=== PATIENT | male | born 1960 | race Caucasian/White ===

== ENCOUNTER 2017-03-02 13:18 | Inpatient (IN) | payer OTHER ==
[~2017-03-02] VITALS: Ht 185.4 cm; Wt 160.2 kg
[~2017-03-02 13:18] MED LIST: ASPI1TAB7 PO; PRIN20TA2 PO; ZOCO40TA PO
[2017-03-02 13:41] VITALS: BP 156/97; PULSE 87; RESP 16; TEMP 98.9; O2SAT 97
[2017-03-02] MEDS ORDERED: SIMV40TA PO (14:15)
[2017-03-02] MEDS ORDERED: HYDR12.56 PO (14:15)
[2017-03-02] MEDS ORDERED: LISI40TA PO (14:15)
[2017-03-02] MEDS ORDERED: ASPI1TAB69 PO (14:15)
[2017-03-02] MEDS ORDERED: BACT400T PO (14:16)
[2017-03-02] MEDS ORDERED: MORPHINE SULFATE 4 MG/ML INJ IV PUSH ONE ×2 (14:30→16:15)
[2017-03-02] MEDS ORDERED: VANCOMYCIN INJ 1,000 MG in SODIUM CHLOR 0.9% 250 ML INJ 250 ML IV ONE ×2 (14:30→18:00)
[2017-03-02 15:03] LABS: CHLORIDE 103 MEQ/L (98-107); POTASSIUM 4.3 MEQ/L (3.5-5.1); SODIUM (NA) 137 MEQ/L (136-145)
[2017-03-02 15:04] LABS: BASOPHIL # 0.1 TH/MM3 (0-0.2); BASOPHIL % 0.9 % (0.0-2.0); EOSINOPHIL # 0.1 TH/MM3 (0-0.4); EOSINOPHIL % 1.2 % (0.0-4.0); HEMATOCRIT 44.5 % (39.0-51.0); HEMO FLAGS DIFF FINAL; LYMPH % 15.7 % (9.0-44.0); LYMPHOCYTE # 1.5 TH/MM3 (1.0-4.8); MEAN CELL VOLUME 87.7 FL (80.0-100.0); MEAN CORPUSCULAR HEMOGLOBIN 28.5 PG (27.0-34.0); MEAN CORPUSCULAR HGB CONC 32.5 % (32.0-36.0); MONO % 7.8 % (0.0-8.0); NEUT % 74.4 % (16.0-70.0); PLATELET COUNT 222 TH/MM3 (150-450); RED BLOOD COUNT 5.08 MIL/MM3 (4.50-5.90); RED CELL DISTRIBUTION WIDTH 13.1 % (11.6-17.2); WHITE BLOOD COUNT 9.4 TH/MM3 (4.0-11.0)
[2017-03-02 15:07] LABS: ANION GAP 8 MEQ/L (5-15); BICARBONATE 25.6 MEQ/L (21.0-32.0); BLOOD UREA NITROGEN 20 MG/DL (7-18)
[2017-03-02 15:10] LABS: ALT (GPT) 27 U/L (12-78); AST (GOT) 32 U/L (15-37); GLOMERULAR FILTRATION RATE 77 ML/MIN (>89)
[2017-03-02 15:11] LABS: TOTAL BILIRUBIN ADULT 0.8 MG/DL (0.2-1.0)
[2017-03-02 15:13] LABS: ALKALINE PHOSPHATASE 108 U/L (45-117)
--- NOTE | 2017-03-02 15:14 | PD ---
HPI Chief Complaint: Skin Problem Time Seen by Provider: 14:12 Travel History International Travel<30 days: No Contact w/Intl Traveler<30days: No Traveled to known affect area: No History of Present Illness HPI Patient is a 56-year-old male who comes in complaining of pain and swelling to his right lower extremity. He says that 2 days ago he thinks he had a flea bite the back of his calf. He noticed yesterday that it was red and a little swollen. He went to urgent care who prescribed him Bactrim. He went back for a wound check today, and it appeared to be getting worse, so they sent him to the emergency department. He says his leg has become more red and the area swelling has increased. He reports a fever of 102 yesterday. He denies any chest pain or shortness of breath. He denies history of diabetes. PFSH Past Medical History Arthritis: Yes (KNEES) Cardiovascular Problems: Yes Diabetes: No Glaucoma: Yes Hypertension: Yes Influenza Vaccination: Yes Past Surgical History Other Surgery: Yes (LASIK EYE SURGERY) Social History Alcohol Use: Yes (RARELY) Tobacco Use: No Substance Use: No Allergies-Medications (Allergen,Severity, Reaction): Coded Allergies: Penicillin (Verified Allergy, Mild, 03/02/17) Reported Meds & Prescriptions Reported Meds & Active Scripts Active Reported Bactrim (Sulfamethoxazole-Trimethoprim) 400-80 Mg Tab 1 Tab PO BID Hydrochlorothiazide 12.5 Mg Tab 12.5 Mg PO DAILY Simvastatin 40 Mg Tab 40 Mg PO HS Lisinopril 40 Mg Tab 40 Mg PO DAILY Aspirin 81 Mg Tabdr 81 Mg PO DAILY Review of Systems Except as stated in HPI: all other systems reviewed are Neg General / Constitutional: Positive: Fever HENT: No: Headaches, Lightheadedness Cardiovascular: No: Chest Pain or Discomfort Respiratory: No: Shortness of Breath Gastrointestinal: No: Nausea, Vomiting Musculoskeletal: Positive: Edema, Pain Skin: Positive Change in Pigmentation Neurologic: No: Weakness, Dizziness Physical Exam Narrative GENERAL: Awake and alert, in no acute distress. SKIN: Focused skin assessment warm/dry. Right calf is erythematous from just below the knee to just above the ankle, warm to the touch. HEAD: Atraumatic. Normocephalic. EYES: Pupils equal and round. No scleral icterus. ENT: Mucous membranes pink and moist. NECK: Trachea midline. No JVD. CARDIOVASCULAR: Regular rate and rhythm. No murmur appreciated. RESPIRATORY: No accessory muscle use. Clear to auscultation. Breath sounds equal bilaterally. GASTROINTESTINAL: Abdomen soft, non-tender, nondistended. Hepatic and splenic margins not palpable. MUSCULOSKELETAL: No obvious deformities. No clubbing. No cyanosis. 2+ edema of the right lower extremity. NEUROLOGICAL: Awake and alert. No obvious cranial nerve deficits. Motor grossly within normal limits. Normal speech. PSYCHIATRIC: Appropriate mood and affect; insight and judgment normal. Data Data Last Documented VS Vital Signs Date Time Temp Pulse Resp B/P Pulse Ox O2 Delivery O2 Flow Rate FiO2 03/02/17 13:41 98.9 87 16 156/97 97 Orders Complete Blood Count With Diff (03/02/17 14:17) Comprehensive Metabolic Panel (03/02/17 14:17) Ct Tib/Fib W Iv Contrast (03/02/17 ) Vancomycin Inj (Vancomycin Inj) (03/02/17 14:30) Morphine Inj (Morphine Inj) (03/02/17 14:30) Blood Culture (03/02/17 14:17) Iohexol 350 Inj (Omnipaque 350 Inj) (03/02/17 15:42) Lidocaine 1% Inj (50 Ml) (Xylocaine 1% I (03/02/17 15:45) Admit Order (Ed Use Only) (03/02/17 ) Morphine Inj (Morphine Inj) (03/02/17 16:15) Labs Laboratory Tests Test 03/02/17 14:35 White Blood Count 9.4 TH/MM3 Red Blood Count 5.08 MIL/MM3 Hemoglobin 14.5 GM/DL Hematocrit 44.5 % Mean Corpuscular Volume 87.7 FL Mean Corpuscular Hemoglobin 28.5 PG Mean Corpuscular Hemoglobin 32.5 % Concent Red Cell Distribution Width 13.1 % Platelet Count 222 TH/MM3 Mean Platelet Volume 8.0 FL Neutrophils (%) (Auto) 74.4 % Lymphocytes (%) (Auto) 15.7 % Monocytes (%) (Auto) 7.8 % Eosinophils (%) (Auto) 1.2 % Basophils (%) (Auto) 0.9 % Neutrophils # (Auto) 7.0 TH/MM3 Lymphocytes # (Auto) 1.5 TH/MM3 Monocytes # (Auto) 0.7 TH/MM3 Eosinophils # (Auto) 0.1 TH/MM3 Basophils # (Auto) 0.1 TH/MM3 CBC Comment DIFF FINAL Differential Comment Sodium Level 137 MEQ/L Potassium Level 4.3 MEQ/L Chloride Level 103 MEQ/L Carbon Dioxide Level 25.6 MEQ/L Anion Gap 8 MEQ/L Blood Urea Nitrogen 20 MG/DL Creatinine 1.00 MG/DL Estimat Glomerular Filtration 77 ML/MIN Rate Random Glucose 109 MG/DL Calcium Level 8.4 MG/DL Total Bilirubin 0.8 MG/DL Aspartate Amino Transf 32 U/L (AST/SGOT) Alanine Aminotransferase 27 U/L (ALT/SGPT) Alkaline Phosphatase 108 U/L Total Protein 7.1 GM/DL Albumin 2.9 GM/DL MDM Medical Decision Making Medical Screen Exam Complete: Yes Emergency Medical Condition: Yes Differential Diagnosis Necrotizing fasciitis versus Cellulitis versus abscess Narrative Course Patient is a 56-year-old male comes in complaining of pain, swelling, redness of his right leg. Exam shows large area of erythema and warmth. IV established , labs sent. Labs show no acute abnormalities. Given Vancomycin and pain medicine. CT performed shows extensive cellulitis, no definitive abscess. Patient will be admitted for further management. Diagnosis Primary Impression: Cellulitis Qualified Code: L03.115 - Cellulitis of right lower extremity Admitting Information Admitting Physician Requests: Observation Condition: Stable Delores Norman MD Mar 02, 2017 15:14
[2017-03-02] MEDS ORDERED: IOHEXOL 350 MG/ML 10 ML VIAL (for RAD DIAG) IV ONE (15:42)
[2017-03-02] MEDS ORDERED: LIDOCAINE HCL 1% 50 ML VIAL INFIL ONE (15:45)
--- NOTE | 2017-03-02 15:53 | RADHPO ---
EXAM DATE/TIME: 03/02/2017 15:20 [facility] COMPARISON: No previous studies available for comparison. INDICATIONS : Wound on right upper lateral low leg. Evaluate for abscess. IV CONTRAST: 90 cc Omnipaque 350 (iohexol) IV RADIATION DOSE: 11.43 CTDIvol (mGy) MEDICAL HISTORY : Hypertension. SURGICAL HISTORY : None. ENCOUNTER: Initial ACUITY: 2 days PAIN SCALE: 5/10 LOCATION: Right low leg TECHNIQUE: Volumetric scanning of the tibia and fibula was performed. Using automated exposure c ontrol and adjustment of the mA and/or kV according to patient size, radiation dose was kept as low a s reasonably achievable to obtain optimal diagnostic quality images. FINDINGS: There is generalized soft tissue swelling evident. There is marked cellulitis and edema throughout t he entire lower extremity below the knee to the ankle without obvious defined fluid collection or abs cess. There is no evidence of bony destruction. There is suggestion of osteomyelitis. CONCLUSION: 1. Marked superficial cellulitis without defined deep space abscess or osteomyelitis. 2. Cellulitis does involve the anterior surface of the tibia but there is no periosteal reaction to suggest an osteomyelitis at this point. 3. Extensive venous varicosity evident. Noe Burks MD FACR on March 02, 2017 at 15:46 Board Certified Radiologist. This report was verified electronically.
[2017-03-02 16:48] VITALS: BP 138/78; PULSE 88; RESP 18; TEMP 98.6; O2SAT 97
[2017-03-02] MEDS ORDERED: SODIUM CHLORIDE 0.9% FLUSH 10 ML FLUSH IV FLUSH PRN (17:15)
[2017-03-02] MEDS ORDERED: NALOXONE HCL 0.4 MG/ML AMP IV PRN (17:15)
[2017-03-02] MEDS ORDERED: ACETAMINOPHEN 325 MG TAB PO PRN (17:15)
[2017-03-02] MEDS ORDERED: SENNOSIDES 8.6 MG TAB PO PRN (17:15)
--- NOTE | 2017-03-02 17:53 | HHI.HP ---
HPI Service [facility] Primary Care Physician Sharmin tSroud, Admission Diagnosis Cellulitis Diagnoses: Chief Complaint: Leg pain, cellulitis Travel History International Travel<30 Days: No Contact w/Intl Traveler <30 Da: No Traveled to Known Affected Are: No History of Present Illness The patient is a 56-year-old male with a past medical history of CVA and sleep apnea who is presenting to the hospital with cellulitis. 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 He said he received the cream and a course of pills and the scabies resolved. He said he had the scabies sores in his inner arms, around the elbows. 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 He was very itchy from the fleas and started scratching his legs and he scratched his leg until it started bleeding. He says there was an area on his right leg that was like a small red dot. He applied zinc oxide to the area. It got bigger, more painful and his leg felt tight so he went to urgent care. He was given a course of Bactrim. He says today his leg got worse despite the Bactrim so he went back to urgent care and they referred him to the hospital for IV antibiotics. The patient also mentions that he has bumps under his left armpit that he was told might be secondary to MRSA. He says his pain is quite severe at this time. He reports a fever of 102.4 at home. Review of Systems Except as stated in HPI: all other systems reviewed are Neg Past Family Social History Past Medical History CVA 8 years ago Hypertension Obstructive sleep apnea on CPAP Allergies: Coded Allergies: Penicillin (Verified Allergy, Mild, 03/02/17) Active Ordered Medications Current Medications Medications (Trade) Dose Ordered Sig/Chandan Route Start Time Stop Time Status Last Admin Pharmacy Profile Note 0 ml @ 0 mls/hr UNSCH OTHER 03/02/17 18:00 Vancomycin HCl 2250 mg/Sodium Chloride 522.5 ml @ 250 mls/hr Q12H IV 03/03/17 03:00 (Vancomycin Inj/ NS 250 ml Inj) 250 ml @ 250 mls/hr ONCE ONCE IV 03/02/17 18:00 03/02/17 18:59 (Ecotrin Ec) 81 mg DAILY PO 03/03/17 09:00 (Microzide) 12.5 mg DAILY PO 03/03/17 09:00 (Prinivil) 40 mg DAILY PO 03/03/17 09:00 Pravastatin Sodium 80 mg 80 mg HS PO 03/02/17 21:00 (NS 1000 ml Inj) 1,000 ml @ 100 mls/hr Q10H IV 03/02/17 17:14 03/03/17 13:13 (NS Flush) 2 ml UNSCH PRN IV FLUSH 03/02/17 17:15 (NS Flush) 2 ml BID IV FLUSH 03/02/17 21:00 (Tylenol) 650 mg Q4H PRN PO 03/02/17 17:15 (Colace) 100 mg Q12H PO 03/02/17 21:00 (Senokot) 17.2 mg Q12H PRN PO 03/02/17 17:15 (Ambien) 5 mg HS PRN PO 03/02/17 17:15 (Lovenox Inj) 40 mg Q24H SQ 03/02/17 18:00 (Tylenol) 650 mg Q6H PRN PO 03/02/17 17:15 (Roxicodone) 10 mg Q4H PRN PO 03/02/17 17:15 (Dilaudid Pf Inj) 1 mg Q4H PRN IV 03/02/17 17:15 (Roxicodone) 5 mg Q4H PRN PO 03/02/17 17:15 (Narcan Inj) 0.4 mg UNSCH PRN IV 03/02/17 17:15 Miscellaneous Information SPECIFIC LAB TO BE DRAWN:VANCOMY... ONCE ONCE .XX 03/04/17 14:45 03/04/17 14:46 Family History CAD Social History The patient does not drink, smoke or use illicit substances. Physical Exam Vital Signs Vital Signs Date Time Temp Pulse Resp B/P Pulse Ox O2 Delivery O2 Flow Rate FiO2 03/02/17 16:48 98.6 88 18 138/78 97 03/02/17 13:41 98.9 87 16 156/97 97 Physical Exam GENERAL: Awake and alert, in no acute distress. SKIN: Right calf is erythematous from just below the knee to just above the ankle, warm to the touch and tender to palpation. There is an area of focal infection. There is no active drainage. The patient also appears to have an area of folliculitis under his left armpit. HEAD: Atraumatic. Normocephalic. EYES: Pupils equal and round. No scleral icterus. ENT: Mucous membranes pink and moist. NECK: Trachea midline. No JVD. CARDIOVASCULAR: Regular rate and rhythm. No murmur appreciated. RESPIRATORY: No accessory muscle use. Clear to auscultation. Breath sounds equal bilaterally. GASTROINTESTINAL: Abdomen soft, non-tender, nondistended. Hepatic and splenic margins not palpable. MUSCULOSKELETAL: No obvious deformities. No clubbing. No cyanosis. 2+ edema of the right lower extremity. NEUROLOGICAL: Awake and alert. No obvious cranial nerve deficits. Motor grossly within normal limits. Normal speech. PSYCHIATRIC: Appropriate mood and affect; insight and judgment normal. Laboratory Laboratory Tests Test 03/02/17 14:35 White Blood Count 9.4 Red Blood Count 5.08 Hemoglobin 14.5 Hematocrit 44.5 Mean Corpuscular Volume 87.7 Mean Corpuscular Hemoglobin 28.5 Mean Corpuscular Hemoglobin 32.5 Concent Red Cell Distribution Width 13.1 Platelet Count 222 Mean Platelet Volume 8.0 Neutrophils (%) (Auto) 74.4 Lymphocytes (%) (Auto) 15.7 Monocytes (%) (Auto) 7.8 Eosinophils (%) (Auto) 1.2 Basophils (%) (Auto) 0.9 Neutrophils # (Auto) 7.0 Lymphocytes # (Auto) 1.5 Monocytes # (Auto) 0.7 Eosinophils # (Auto) 0.1 Basophils # (Auto) 0.1 CBC Comment DIFF FINAL Differential Comment Sodium Level 137 Potassium Level 4.3 Chloride Level 103 Carbon Dioxide Level 25.6 Anion Gap 8 Blood Urea Nitrogen 20 Creatinine 1.00 Estimat Glomerular Filtration 77 Rate Random Glucose 109 Calcium Level 8.4 Total Bilirubin 0.8 Aspartate Amino Transf 32 (AST/SGOT) Alanine Aminotransferase 27 (ALT/SGPT) Alkaline Phosphatase 108 Total Protein 7.1 Albumin 2.9 Date/Time Procedure Status Source Growth 03/02/17 14:43 Aerobic Blood Culture Received Blood Peripheral Pending 03/02/17 14:43 Anaerobic Blood Culture Received Blood Peripheral Pending Result Diagram: 03/02/17 1435 03/02/17 1435 Imaging Last Impressions Lower Extremity CT 03/02/17 0000 Signed Impressions: Service Date/Time: Thursday, March 02, 2017 15:20 - CONCLUSION: 1. Marked superficial cellulitis without defined deep space abscess or osteomyelitis. 2. Cellulitis does involve the anterior surface of the tibia but there is no periosteal reaction to suggest an osteomyelitis at this point. 3. Extensive venous varicosity evident. Noe Burks MD FACR Assessment and Plan Assessment and Plan Right lower extremity cellulitis The patient sustained cellulitis after scratching his legs secondary to flea bites. He failed an outpatient course of Bactrim. He was started on IV vancomycin in the emergency department. CT of the leg showed: Marked superficial cellulitis without defined deep space abscess or osteomyelitis; Cellulitis does involve the anterior surface of the tibia but there is no periosteal reaction to suggest an osteomyelitis at this point. - Continue IV vancomycin. - Pain control with a bowel regimen. - Follow blood cultures. Obtain wound culture if drainage present. - IV fluids. - Physical therapy. Folliculitis Noted in his left armpit. - Continue vancomycin and monitor. Hypertension Exacerbated by pain. - Continue home medications. - Vasotec as needed. Morbid obesity The patient has a BMI of 46.2. - Weight loss strongly recommended. PPx: Lovenox. Code Status Full. Discussed Condition With Dr. Norman, pt. Cabrera Nye DO Mar 02, 2017 17:53
[2017-03-02 17:54] VITALS: BP 135/74; PULSE 85; RESP 19; TEMP 98.1; O2SAT 96
[2017-03-02] MEDS: ENOXAPARIN SODIUM 40 MG/0.4 ML SYRINGE SQ SCH (17:57)
[2017-03-02] MEDS: SODIUM CHLOR 0.9% 1000 ML INJ 1,000 ML IV SCH ×2 (17:58→18:58)
[2017-03-02] MEDS ORDERED: ENALAPRILAT 1.25 MG/ML VIAL IV PUSH PRN (18:00)
[2017-03-02] MEDS ORDERED: Vancomycin Consult Pharmacy 1 EA OTHER SCH (18:00)
[2017-03-02] MEDS: HYDROmorphone HCL PF 1 MG/ML VIAL IV PRN (19:30)
[2017-03-02 20:37] VITALS: BP 147/91; PULSE 104; RESP 16; TEMP 100.1; O2SAT 95
[2017-03-02] MEDS: DOCUSATE SODIUM 100 MG CAP PO SCH (21:00)
[2017-03-02] MEDS: PRAVASTATIN SOD 40 MG TAB PO SCH (21:00)
[2017-03-02] MEDS: SODIUM CHLORIDE 0.9% FLUSH 10 ML FLUSH IV FLUSH SCH (21:01)
[2017-03-02 21:40] VITALS: O2SAT 98
[2017-03-03 00:29] VITALS: BP 136/72; PULSE 98; RESP 16; TEMP 100.1; O2SAT 96
[2017-03-03] MEDS ORDERED: VANCOMYCIN INJ 2,250 MG in SODIUM CHLORID 0.9% 500 ML INJ 500 ML IV SCH (03:00)
[2017-03-03] MEDS: ACETAMINOPHEN 325 MG TAB PO PRN ×2 (06:28→07:30)
[2017-03-03 07:25] LABS: AUTOMATED NEUTROPHIL # 6.6 TH/MM3 (1.8-7.7); BASOPHIL % 0.3 % (0.0-2.0); EOSINOPHIL # 0.1 TH/MM3 (0-0.4); EOSINOPHIL % 1.1 % (0.0-4.0); HEMATOCRIT 37.5 % (39.0-51.0); LYMPH % 19.6 % (9.0-44.0); LYMPHOCYTE # 1.8 TH/MM3 (1.0-4.8); MEAN CELL VOLUME 86.4 FL (80.0-100.0); MEAN CORPUSCULAR HGB CONC 34.7 % (32.0-36.0); PLATELET COUNT 193 TH/MM3 (150-450); RED BLOOD COUNT 4.34 MIL/MM3 (4.50-5.90); RED CELL DISTRIBUTION WIDTH 12.8 % (11.6-17.2); WHITE BLOOD COUNT 9.3 TH/MM3 (4.0-11.0)
[2017-03-03 07:26] LABS: HEMO FLAGS DIFF FINAL
[2017-03-03 07:48] LABS: ALKALINE PHOSPHATASE 104 U/L (45-117); ALT (GPT) 20 U/L (12-78); ANION GAP 10 MEQ/L (5-15); AST (GOT) 13 U/L (15-37); BICARBONATE 27.8 MEQ/L (21.0-32.0); BLOOD UREA NITROGEN 16 MG/DL (7-18); CHLORIDE 101 MEQ/L (98-107); GLOMERULAR FILTRATION RATE 90 ML/MIN (>89); POTASSIUM 3.4 MEQ/L (3.5-5.1); SODIUM (NA) 139 MEQ/L (136-145)
[2017-03-03 08:00] VITALS: BP 132/86; PULSE 81; RESP 17; TEMP 97.9; O2SAT 94
[2017-03-03] MEDS: ASPIRIN EC 81 MG TABEC PO SCH (08:56)
[2017-03-03] MEDS: DOCUSATE SODIUM 100 MG CAP PO SCH ×2 (08:56→21:05)
[2017-03-03] MEDS: HYDROCHLOROTHIAZIDE 12.5 MG CAP PO SCH (08:56)
[2017-03-03] MEDS: LISINOPRIL 20 MG TAB PO SCH (08:56)
[2017-03-03] MEDS: SODIUM CHLORIDE 0.9% FLUSH 10 ML FLUSH IV FLUSH SCH ×2 (09:00→20:15)
--- NOTE | 2017-03-03 09:54 | HHI.PR ---
Subjective Remarks The patient says that the pain in his right leg is getting worse. He also says his left armpit pain is getting worse. He says he got a rash in the left side of his flank and back. He wants something for itching. Discussed with nursing. Objective Vitals Vital Signs Date Time Temp Pulse Resp B/P Pulse Ox O2 Delivery O2 Flow Rate FiO2 03/03/17 08:00 97.9 81 17 132/86 94 03/03/17 00:29 100.1 98 16 136/72 96 03/02/17 21:40 98 21 03/02/17 20:37 100.1 104 16 147/91 95 03/02/17 17:54 98.1 85 19 135/74 96 03/02/17 16:48 98.6 88 18 138/78 97 03/02/17 13:41 98.9 87 16 156/97 97 I/O 03/02/17 03/02/17 03/02/17 03/03/17 03/03/17 03/03/17 07:00 15:00 23:00 07:00 15:00 23:00 Intake Total 970 ml Output Total 250 ml Balance 970 ml -250 ml Intake Oral 720 ml IV Total 250 ml Output Urine Total 250 ml # Voids 0 Result Diagram: 03/03/17 0630 03/03/17 0630 Imaging Last Impressions Lower Extremity CT 03/02/17 0000 Signed Impressions: Service Date/Time: Thursday, March 02, 2017 15:20 - CONCLUSION: 1. Marked superficial cellulitis without defined deep space abscess or osteomyelitis. 2. Cellulitis does involve the anterior surface of the tibia but there is no periosteal reaction to suggest an osteomyelitis at this point. 3. Extensive venous varicosity evident. Noe Burks MD FACR Objective Remarks GENERAL: Awake and alert, in no acute distress. SKIN: Right calf is erythematous from just below the knee to just above the ankle, warm to the touch and tender to palpation. There is an area of focal infection. There is no active drainage. The patient also appears to have an area of folliculitis under his left armpit. Rash on back and left flank area. HEAD: Atraumatic. Normocephalic. EYES: Pupils equal and round. No scleral icterus. ENT: Mucous membranes pink and moist. NECK: Trachea midline. No JVD. CARDIOVASCULAR: Regular rate and rhythm. No murmur appreciated. RESPIRATORY: No accessory muscle use. Clear to auscultation. Breath sounds equal bilaterally. GASTROINTESTINAL: Abdomen soft, non-tender, nondistended. Hepatic and splenic margins not palpable. MUSCULOSKELETAL: No obvious deformities. No clubbing. No cyanosis. 2+ edema of the right lower extremity. NEUROLOGICAL: Awake and alert. No obvious cranial nerve deficits. Motor grossly within normal limits. Normal speech. PSYCHIATRIC: Appropriate mood and affect; insight and judgment normal. Medications and IVs Current Medications Medications (Trade) Dose Ordered Sig/Chandan Route Start Time Stop Time Status Last Admin Pharmacy Profile Note 0 ml @ 0 mls/hr UNSCH OTHER 03/02/17 18:00 (Vancomycin Inj/ NS 500 ml Inj) 522.5 ml @ 250 mls/hr Q12H IV 03/03/17 03:00 03/03/17 03:13 (Ecotrin Ec) 81 mg DAILY PO 03/03/17 09:00 03/03/17 08:56 (Microzide) 12.5 mg DAILY PO 03/03/17 09:00 03/03/17 08:56 (Prinivil) 40 mg DAILY PO 03/03/17 09:00 03/03/17 08:56 Pravastatin Sodium 80 mg 80 mg HS PO 03/02/17 21:00 03/02/17 21:00 (NS 1000 ml Inj) 1,000 ml @ 100 mls/hr Q10H IV 03/02/17 17:14 03/03/17 13:13 03/02/17 18:58 (NS Flush) 2 ml UNSCH PRN IV FLUSH 03/02/17 17:15 (NS Flush) 2 ml BID IV FLUSH 03/02/17 21:00 03/02/17 21:01 (Tylenol) 650 mg Q4H PRN PO 03/02/17 17:15 03/03/17 06:28 (Colace) 100 mg Q12H PO 03/02/17 21:00 03/03/17 08:56 (Senokot) 17.2 mg Q12H PRN PO 03/02/17 17:15 (Ambien) 5 mg HS PRN PO 03/02/17 17:15 (Lovenox Inj) 40 mg Q24H SQ 03/02/17 18:00 03/02/17 17:57 (Tylenol) 650 mg Q6H PRN PO 03/02/17 17:15 (Roxicodone) 10 mg Q4H PRN PO 03/02/17 17:15 03/03/17 08:10 (Dilaudid Pf Inj) 1 mg Q4H PRN IV 03/02/17 17:15 03/02/17 19:30 (Roxicodone) 5 mg Q4H PRN PO 03/02/17 17:15 03/02/17 17:57 (Narcan Inj) 0.4 mg UNSCH PRN IV 03/02/17 17:15 Miscellaneous Information SPECIFIC LAB TO BE DRAWN:VANCOMY... ONCE ONCE .XX 03/04/17 14:45 03/04/17 14:46 (Vasotec Inj) 1.25 mg Q6H PRN IV PUSH 03/02/17 18:00 A/P Assessment and Plan Right lower extremity cellulitis The patient sustained cellulitis after scratching his legs secondary to flea bites. He failed an outpatient course of Bactrim. He was started on IV vancomycin in the emergency department. CT of the leg showed: Marked superficial cellulitis without defined deep space abscess or osteomyelitis; Cellulitis does involve the anterior surface of the tibia but there is no periosteal reaction to suggest an osteomyelitis at this point. - d/c IV vancomycin as there is concern for a drug rash. Start IV clindamycin. - Pain control with a bowel regimen. - Follow blood cultures. Obtain wound culture. - IV fluids. - Physical therapy. - Benadryl for itching. Folliculitis Noted in his left armpit. - Continue clindamycin and monitor. Hypertension Exacerbated by pain. - Continue home medications. - Vasotec as needed. Morbid obesity The patient has a BMI of 46.2. - Weight loss strongly recommended. PPx: Lovenox. Discharge Planning Awaiting clinical improvement. Cabrera Nye DO Mar 03, 2017 09:54
[2017-03-03] MEDS: HYDROmorphone HCL PF 1 MG/ML VIAL IV PRN ×5 (10:10→22:43)
[2017-03-03] MEDS ORDERED: diphenhydrAMINE HCL 50 MG/ML VIAL IV PUSH ONE (10:30)
[2017-03-03] MEDS ORDERED: POTASSIUM CHLORIDE 25 MEQ EFFERVESCENT TAB PO ONE (10:30)
[2017-03-03] MEDS: CLINDAMYCIN INJ 600 MG in SODIUM CHLORIDE 0.9% INJ 100 ML IV SCH ×2 (11:42→20:15)
[2017-03-03] MEDS: LACTOBACILLUS ACIDOPHILUS TAB PO SCH ×2 (11:53→18:21)
[2017-03-03 12:00] VITALS: BP 130/79; PULSE 80; RESP 18; TEMP 97.7; O2SAT 93
[2017-03-03] MEDS: diphenhydrAMINE HCL 50 MG/ML VIAL IV PUSH PRN ×2 (15:49→20:12)
[2017-03-03 16:00] VITALS: BP 108/75; PULSE 84; RESP 17; TEMP 97.2; O2SAT 95
[2017-03-03] MEDS: ENOXAPARIN SODIUM 40 MG/0.4 ML SYRINGE SQ SCH (18:21)
[2017-03-03 20:41] VITALS: BP 121/75; PULSE 91; RESP 16; TEMP 100.2; O2SAT 94
[2017-03-03] MEDS: PRAVASTATIN SOD 40 MG TAB PO SCH (21:05)
[2017-03-03 21:14] VITALS: O2SAT 97
[2017-03-03] MEDS: ZOLPIDEM TARTRATE 5 MG TAB PO PRN (22:42)
[2017-03-04] VITALS (7 sets, daily range): BP systolic 121–131; BP diastolic 75–87; PULSE 85–97; RESP 18–20; TEMP 97.6–99.2; O2SAT 92–97
[2017-03-04] MEDS: diphenhydrAMINE HCL 50 MG/ML VIAL IV PUSH PRN ×5 (01:54→22:05)
[2017-03-04] MEDS: CLINDAMYCIN INJ 600 MG in SODIUM CHLORIDE 0.9% INJ 100 ML IV SCH (02:29)
[2017-03-04 07:33] LABS: HEMATOCRIT 38.6 % (39.0-51.0); MEAN CELL VOLUME 87.5 FL (80.0-100.0); MEAN CORPUSCULAR HEMOGLOBIN 29.5 PG (27.0-34.0); MEAN CORPUSCULAR HGB CONC 33.8 % (32.0-36.0); PLATELET COUNT 185 TH/MM3 (150-450); RED BLOOD COUNT 4.41 MIL/MM3 (4.50-5.90); RED CELL DISTRIBUTION WIDTH 12.9 % (11.6-17.2); REVIEW FLAG FINAL; WHITE BLOOD COUNT 5.5 TH/MM3 (4.0-11.0)
[2017-03-04 07:38] LABS: POTASSIUM 3.8 MEQ/L (3.5-5.1)
[2017-03-04 07:43] LABS: BICARBONATE 25.3 MEQ/L (21.0-32.0); MAGNESIUM 1.8 MG/DL (1.5-2.5)
[2017-03-04] MEDS: SODIUM CHLORIDE 0.9% FLUSH 10 ML FLUSH IV FLUSH SCH ×2 (09:00→21:57)
[2017-03-04] MEDS: ASPIRIN EC 81 MG TABEC PO SCH (09:20)
[2017-03-04] MEDS: LACTOBACILLUS ACIDOPHILUS TAB PO SCH ×3 (09:20→17:27)
[2017-03-04] MEDS: HYDROCHLOROTHIAZIDE 12.5 MG CAP PO SCH (09:20)
[2017-03-04] MEDS: DOCUSATE SODIUM 100 MG CAP PO SCH ×2 (09:20→21:57)
[2017-03-04] MEDS: LISINOPRIL 20 MG TAB PO SCH (09:21)
[2017-03-04] MEDS: HYDROmorphone HCL PF 1 MG/ML VIAL IV PRN (09:22)
[2017-03-04] MEDS ORDERED: ACETAMINOPHEN/HYDROcodone 325 MG/5 MG TAB PO PRN (10:45)
[2017-03-04] MEDS: MORPHINE SULFATE 4 MG/ML INJ IV PUSH PRN ×2 (11:55→13:22)
[2017-03-04] MEDS ORDERED: Vancomycin Consult Pharmacy 1 EA OTHER SCH (12:00)
[2017-03-04] MEDS ORDERED: methylPREDNISolone SOD SUCC 125 MG/2 ML VIAL IV PUSH ONE (12:00)
--- NOTE | 2017-03-04 12:12 | HHI.PR ---
Subjective Remarks The patient says his leg pain is worse. He says it is draining a lot. He says that the rash is spreading up his back and up his leg. He said he would like some steroids. He had nursing friends visiting him. Objective Vitals Vital Signs Date Time Temp Pulse Resp B/P Pulse Ox O2 Delivery O2 Flow Rate FiO2 03/04/17 08:55 97 21 03/04/17 08:00 98.9 87 19 121/87 93 03/04/17 00:46 97.6 90 18 121/83 95 03/03/17 21:14 97 21 03/03/17 21:05 18 03/03/17 20:41 100.2 91 16 121/75 94 03/03/17 20:05 18 03/03/17 20:05 20 03/03/17 16:00 97.2 84 17 108/75 95 I/O 03/03/17 03/03/17 03/03/17 03/04/17 03/04/17 03/04/17 07:00 15:00 23:00 07:00 15:00 23:00 Intake Total 150 ml 100 ml Output Total 250 ml Balance -250 ml 150 ml 100 ml IV Total 150 ml 100 ml Output Urine Total 250 ml # Voids 2 Result Diagram: 03/04/17 0641 03/04/17 0641 Imaging Last Impressions Lower Extremity CT 03/02/17 0000 Signed Impressions: Service Date/Time: Thursday, March 02, 2017 15:20 - CONCLUSION: 1. Marked superficial cellulitis without defined deep space abscess or osteomyelitis. 2. Cellulitis does involve the anterior surface of the tibia but there is no periosteal reaction to suggest an osteomyelitis at this point. 3. Extensive venous varicosity evident. Noe Burks MD FACR Objective Remarks GENERAL: Awake and alert, in no acute distress. SKIN: Right calf is erythematous from just below the knee to just above the ankle, warm to the touch and tender to palpation. There is an area of focal infection. There is no active drainage. The patient also appears to have an area of folliculitis under his left armpit. Rash on back and left flank area as well as right thigh. HEAD: Atraumatic. Normocephalic. EYES: Pupils equal and round. No scleral icterus. ENT: Mucous membranes pink and moist. NECK: Trachea midline. No JVD. CARDIOVASCULAR: Regular rate and rhythm. No murmur appreciated. RESPIRATORY: No accessory muscle use. Clear to auscultation. Breath sounds equal bilaterally. GASTROINTESTINAL: Abdomen soft, non-tender, nondistended. Hepatic and splenic margins not palpable. MUSCULOSKELETAL: No obvious deformities. No clubbing. No cyanosis. 2+ edema of the right lower extremity. NEUROLOGICAL: Awake and alert. No obvious cranial nerve deficits. Motor grossly within normal limits. Normal speech. PSYCHIATRIC: Appropriate mood and affect; insight and judgment normal. Medications and IVs Current Medications Medications (Trade) Dose Ordered Sig/Chandan Route Start Time Stop Time Status Last Admin (Ecotrin Ec) 81 mg DAILY PO 03/03/17 09:00 03/04/17 09:20 (Microzide) 12.5 mg DAILY PO 03/03/17 09:00 03/04/17 09:20 (Prinivil) 40 mg DAILY PO 03/03/17 09:00 03/04/17 09:21 (Pravachol) 80 mg HS PO 03/02/17 21:00 03/03/17 21:05 (NS Flush) 2 ml UNSCH PRN IV FLUSH 03/02/17 17:15 (NS Flush) 2 ml BID IV FLUSH 03/02/17 21:00 03/03/17 20:15 (Tylenol) 650 mg Q4H PRN PO 03/02/17 17:15 03/03/17 07:30 (Colace) 100 mg Q12H PO 03/02/17 21:00 03/04/17 09:20 (Senokot) 17.2 mg Q12H PRN PO 03/02/17 17:15 (Ambien) 5 mg HS PRN PO 03/02/17 17:15 03/03/17 22:42 (Lovenox Inj) 40 mg Q24H SQ 03/02/17 18:00 03/03/17 18:21 (Narcan Inj) 0.4 mg UNSCH PRN IV 03/02/17 17:15 (Vasotec Inj) 1.25 mg Q6H PRN IV PUSH 03/02/17 18:00 Lactobacillus Acidophilus 1 tab 1 tab TID PO 03/03/17 13:00 03/04/17 11:55 Vancomycin HCl 2500 mg/Sodium Chloride 525 ml @ 250 mls/hr Q12H IV 03/04/17 13:00 (Vancomycin Consult Pharmacy) 0 ml @ 0 mls/hr UNSCH OTHER 03/04/17 12:00 (Skillman 5-325 Mg) 1 tab Q4H PRN PO 03/04/17 10:45 ([place] 10-325 Mg) 1 tab Q4H PRN PO 03/04/17 10:45 (Morphine Inj) 4 mg Q4HR PRN IV PUSH 03/04/17 10:45 03/04/17 11:55 (Benadryl Inj) 50 mg Q4H PRN IV PUSH 03/04/17 15:00 Miscellaneous Information SPECIFIC LAB TO BE DRAWN:VANCOMY... ONCE ONCE .XX 03/06/17 00:45 03/06/17 00:46 A/P Assessment and Plan Right lower extremity cellulitis The patient sustained cellulitis after scratching his legs secondary to flea bites. He failed an outpatient course of Bactrim. He was started on IV vancomycin in the emergency department. CT of the leg showed: Marked superficial cellulitis without defined deep space abscess or osteomyelitis; Cellulitis does involve the anterior surface of the tibia but there is no periosteal reaction to suggest an osteomyelitis at this point. Area in center of infection has started to drain. Culture shows MRSA. - switch clindamycin back to vancomycin. - Pain control with a bowel regimen. - Follow blood and wound culture data. - Physical therapy. - US pending. Consult surgery if abscess described. Otherwise consult ID. Folliculitis Noted in his left armpit. - Continue vancomycin and monitor. Hypertension Exacerbated by pain. - Continue home medications. - Vasotec as needed. Morbid obesity The patient has a BMI of 46.2. - Weight loss strongly recommended. Drug reaction/ Rash The pt has a rash on his back and lower extremities. Did not improve by switching vanco to clindamycin. May be s/t pain meds. - switch pain meds to Skillman and morphine. - Solumedrol and Benadryl as needed. - monitor while on vancomycin. PPx: Lovenox. Discharge Planning Awaiting clinical improvement. Cabrera Nye DO Mar 04, 2017 12:12
--- NOTE | 2017-03-04 12:56 | RADHPO ---
EXAM DATE/TIME: 03/04/2017 11:54 [place] COMPARISON: No previous studies available for comparison. INDICATIONS : Right leg abscess. MEDICAL HISTORY : Glaucoma. HTN. Arthritis. CVA. Sleep apnea. SURGICAL HISTORY : Lasik eye surgery. ENCOUNTER: Initial ACUITY: 3 days PAIN SCORE: 8/10 LOCATION: Right leg. AREA EVALUATED: Right prox lateral calf. FINDINGS: Focused ultrasound of the right lower leg was performed. Elongated ovoid 4.0 x 3.2 x 1.2 cm complex f luid collection. Surrounding soft tissue edema. CONCLUSION: 4 x 3 x 1 cm complex fluid collection in the superficial soft tissues of the right calf suggesting ab scess in the proper clinical setting. Sy Finch MD on March 04, 2017 at 12:52 Board Certified Radiologist. This report was verified electronically.
[2017-03-04] MEDS: ACETAMINOPHEN/HYDROcodone 325 MG/10 MG TAB PO PRN ×3 (13:37→23:34)
[2017-03-04] MEDS: VANCOMYCIN INJ 2,500 MG in SODIUM CHLORID 0.9% 500 ML INJ 500 ML IV SCH (13:58)
[2017-03-04] MEDS ORDERED: VANCOMYCIN TROUGH ONE (14:45)
--- NOTE | 2017-03-04 15:38 | MB ---
cc: GOVIND RUIZ M.D. DATE OF CONSULTATION 03/04/17 REASON FOR CONSULTATION Right lower extremity abscess. HISTORY OF PRESENT ILLNESS The patient is a 56-year-old male with history of CVA and sleep apnea who presented with cellulitis on 03/02/2017. The patient had flea bites and either had scabies or other problems on January 12. He had a course of cream and pills and this resolved. He had sores on the inner arms and around the elbows. The patient had flea bites and scratched his legs until it started bleeding. The area on the right leg got larger and more painful. He was seen in Urgent Care and given a course of Bactrim. He represented with increasing problem and was referred for IV antibiotics. The patient had a fever of 102 at home. PAST MEDICAL HISTORY On past medical history includes CVA 8 years ago, hypertension, obstructive sleep apnea on C-PAP. ALLERGIES HE HAS AN ALLERGY TO PENICILLIN WHICH CAUSES RASH AND HIVES. SOCIAL HISTORY The patient does not drink, smoke or use illicit substances. REVIEW OF SYSTEMS His review of systems is otherwise negative except as indicated above. PHYSICAL EXAMINATION GENERAL: Reveals an obese male in no acute distress. VITAL SIGNS: BP 125/75, pulse 85, respirations 20, temperature 98.2, 92% saturation on room air. The patient had fevers last night. None today. He denies any fever, shaking chills. CHEST: The chest is clear to auscultation. CARDIAC: Cardiac exam reveals regular rate and rhythm. ABDOMEN: Abdomen is soft. EXTREMITIES: There are multiple small approximately 2 cm areas of redness on the arms and legs proximally. These are not raised. On the right leg on the medial posterior side of the leg on the upper portion of the calf is a large area of erythema extending from just below the knee down to approximately 10-12 cm from the ankle. In the center of this area there is some epidermolysis of the skin and purulent drainage. There does not appear to be any bella necrosis of the skin or subcutaneous tissues at this time. There is pedal edema distal to this with edema of the foot. The patient has a palpable posterior tibial pulse but I cannot palpate a dorsalis pedis pulse due to the swelling. NEUROLOGIC: Exam is nonfocal. LABORATORY DATA Laboratory values demonstrate WBCs of 5.5, hemoglobin is 13, platelet count 185,000. Chemistries are essentially within normal limits except for BUN slightly elevated at 20. IMAGING STUDIES Imaging demonstrates ultrasound with a 4 x 3.2 x 1.2 cm complex fluid collection. IMPRESSION Right posterior lower leg abscess, partially drained. PLAN Patient has had lunch, is not febrile, tachycardic or showing other signs of sepsis. The wound is partially draining. He will require formal open draining as he is extremely tender to touch and bedside drainage would not be appropriate. I have discussed risks of surgery with the patient and a family member sitting present including but not limited to bleeding, infection, need for reoperation. As well as nerve damage with foot drop as this is located slightly off center laterally. We also discussed possible limb loss without intervention. This is unlikely if the abscesses drained. I discussed remedies, consequences, alternatives, convalescence; he vocalizes understand and agrees to proceed. The patient will undergo an incision and drainage with either VAC placement or packing depending on the tissue, on the appearance of the tissues deeper. Will make the patient n.p.o. after midnight. Thank you Dr. Nye for asking us to see this individual. MD YARIEL Talavera/STAN /3:01 PM /3:24 PM
[2017-03-04] MEDS: ENOXAPARIN SODIUM 40 MG/0.4 ML SYRINGE SQ SCH (17:27)
[2017-03-04] MEDS: PRAVASTATIN SOD 40 MG TAB PO SCH (21:57)
[2017-03-04] MEDS: ZOLPIDEM TARTRATE 5 MG TAB PO PRN (22:46)
[2017-03-05] VITALS (9 sets, daily range): BP systolic 105–116; BP diastolic 55–78; PULSE 70–92; RESP 18–20; TEMP 96.4–97.8; O2SAT 92–98
[2017-03-05] MEDS: VANCOMYCIN INJ 2,500 MG in SODIUM CHLORID 0.9% 500 ML INJ 500 ML IV SCH ×2 (02:20→14:19)
[2017-03-05] MEDS ORDERED: LACTATED RINGER'S 1000 ML IV PRN (02:30)
[2017-03-05] MEDS: diphenhydrAMINE HCL 50 MG/ML VIAL IV PUSH PRN ×3 (06:32→22:42)
[2017-03-05] MEDS: MORPHINE SULFATE 4 MG/ML INJ IV PUSH PRN (06:37)
[2017-03-05] MEDS: ASPIRIN EC 81 MG TABEC PO SCH (09:00)
[2017-03-05] MEDS: DOCUSATE SODIUM 100 MG CAP PO SCH ×2 (09:06→20:43)
[2017-03-05] MEDS: HYDROCHLOROTHIAZIDE 12.5 MG CAP PO SCH (09:06)
[2017-03-05] MEDS: LACTOBACILLUS ACIDOPHILUS TAB PO SCH ×3 (09:06→17:47)
[2017-03-05] MEDS: SODIUM CHLORIDE 0.9% FLUSH 10 ML FLUSH IV FLUSH SCH ×2 (09:07→20:43)
[2017-03-05] MEDS: LISINOPRIL 20 MG TAB PO SCH (09:07)
[2017-03-05] MEDS ORDERED: PROPOFOL 200 MG/20 ML AMP IV ONE (09:59)
[2017-03-05] MEDS ORDERED: ePHEDrine/NS 25 MG/5 ML SYR IV ONE (09:59)
[2017-03-05] MEDS ORDERED: LIDOCAINE 1%/EPINEPHrine 1:100,000 SOLN 30 ML VIAL ONE (10:36)
[2017-03-05] MEDS ORDERED: LIDOCAINE HCL 1% PF 30 ML VIAL ONE (10:36)
[2017-03-05] MEDS ORDERED: MIDAZOLAM HCL 2 MG/2 ML VIAL ONE (10:47)
[2017-03-05] MEDS ORDERED: FAMOTIDINE 20 MG/2 ML VIAL ONE (10:47)
--- NOTE | 2017-03-05 10:52 | HHI.PR ---
Subjective Remarks The patient was resting comfortably in bed. He said that his pain was controlled. He said his rash was better with the Benadryl. He said he was expecting to go for surgery later this morning. No acute complaints. Objective Vitals Vital Signs Date Time Temp Pulse Resp B/P Pulse Ox O2 Delivery O2 Flow Rate FiO2 03/05/17 10:13 97.8 70 24 124/72 98 03/05/17 00:00 97.6 80 18 116/78 92 03/04/17 20:34 99.2 97 20 128/78 92 03/04/17 20:25 18 03/04/17 20:25 18 03/04/17 19:47 93 21 03/04/17 16:00 86 18 131/82 95 03/04/17 12:00 98.2 85 20 125/75 92 I/O 03/04/17 03/04/17 03/04/17 03/05/17 03/05/17 03/05/17 07:00 15:00 23:00 07:00 15:00 23:00 Intake Total 100 ml 620 ml 1380 ml Output Total 400 ml Balance 100 ml 220 ml 1380 ml Intake Oral 620 ml 580 ml IV Total 100 ml 800 ml Output Urine Total 400 ml # Voids 2 2 2 # Bowel Movements 0 0 Result Diagram: 03/04/17 0641 03/04/17 0641 Imaging Last Impressions Lower Extremity Ultrasound 03/04/17 0000 Signed Impressions: Service Date/Time: Saturday, March 04, 2017 11:54 - CONCLUSION: 4 x 3 x 1 cm complex fluid collection in the superficial soft tissues of the right calf suggesting abscess in the proper clinical setting. Sy Finch MD Lower Extremity CT 03/02/17 0000 Signed Impressions: Service Date/Time: Thursday, March 02, 2017 15:20 - CONCLUSION: 1. Marked superficial cellulitis without defined deep space abscess or osteomyelitis. 2. Cellulitis does involve the anterior surface of the tibia but there is no periosteal reaction to suggest an osteomyelitis at this point. 3. Extensive venous varicosity evident. Noe Burks MD FACR Objective Remarks GENERAL: Awake and alert, in no acute distress. SKIN: Right calf is erythematous from just below the knee to just above the ankle, warm to the touch and tender to palpation. There is an area of focal infection. There is no active drainage. The patient also appears to have an area of folliculitis under his left armpit. Rash on back and left flank area as well as right thigh have improved. HEAD: Atraumatic. Normocephalic. EYES: Pupils equal and round. No scleral icterus. ENT: Mucous membranes pink and moist. NECK: Trachea midline. No JVD. CARDIOVASCULAR: Regular rate and rhythm. No murmur appreciated. RESPIRATORY: No accessory muscle use. Clear to auscultation. Breath sounds equal bilaterally. GASTROINTESTINAL: Abdomen soft, non-tender, nondistended. Hepatic and splenic margins not palpable. MUSCULOSKELETAL: No obvious deformities. No clubbing. No cyanosis. 2+ edema of the right lower extremity. NEUROLOGICAL: Awake and alert. No obvious cranial nerve deficits. Motor grossly within normal limits. Normal speech. PSYCHIATRIC: Appropriate mood and affect; insight and judgment normal. Procedures I&D 03/05/17. Medications and IVs Current Medications Medications (Trade) Dose Ordered Sig/Chandan Route Start Time Stop Time Status Last Admin (Ecotrin Ec) 81 mg DAILY PO 03/03/17 09:00 03/04/17 09:20 (Microzide) 12.5 mg DAILY PO 03/03/17 09:00 03/05/17 09:06 (Prinivil) 40 mg DAILY PO 03/03/17 09:00 03/05/17 09:07 (Pravachol) 80 mg HS PO 03/02/17 21:00 03/04/17 21:57 (NS Flush) 2 ml UNSCH PRN IV FLUSH 03/02/17 17:15 (NS Flush) 2 ml BID IV FLUSH 03/02/17 21:00 03/05/17 09:07 (Tylenol) 650 mg Q4H PRN PO 03/02/17 17:15 03/03/17 07:30 (Colace) 100 mg Q12H PO 03/02/17 21:00 03/05/17 09:06 (Senokot) 17.2 mg Q12H PRN PO 03/02/17 17:15 (Ambien) 5 mg HS PRN PO 03/02/17 17:15 03/04/17 22:46 (Lovenox Inj) 40 mg Q24H SQ 03/02/17 18:00 Hold 03/03/17 18:21 (Narcan Inj) 0.4 mg UNSCH PRN IV 03/02/17 17:15 (Vasotec Inj) 1.25 mg Q6H PRN IV PUSH 03/02/17 18:00 Lactobacillus Acidophilus 1 tab 1 tab TID PO 03/03/17 13:00 03/05/17 09:06 Vancomycin HCl 2500 mg/Sodium Chloride 525 ml @ 250 mls/hr Q12H IV 03/04/17 13:00 03/05/17 02:20 (Vancomycin Consult Pharmacy) 0 ml @ 0 mls/hr UNSCH OTHER 03/04/17 12:00 ([facility] 5-325 Mg) 1 tab Q4H PRN PO 03/04/17 10:45 ([facility] 10-325 Mg) 1 tab Q4H PRN PO 03/04/17 10:45 03/04/17 23:34 (Morphine Inj) 4 mg Q4HR PRN IV PUSH 03/04/17 10:45 03/05/17 06:37 (Benadryl Inj) 50 mg Q4H PRN IV PUSH 03/04/17 15:00 03/05/17 06:32 Miscellaneous Information SPECIFIC LAB TO BE DRAWN:VANCOMY... ONCE ONCE .XX 03/06/17 00:45 03/06/17 00:46 (Lr 1000 ml Inj) 1,000 ml @ 30 mls/hr Q24H PRN IV 03/05/17 02:30 03/08/17 02:29 A/P Assessment and Plan Right lower extremity cellulitis The patient sustained cellulitis after scratching his legs secondary to flea bites. He failed an outpatient course of Bactrim. He was started on IV vancomycin in the emergency department. CT of the leg showed: Marked superficial cellulitis without defined deep space abscess or osteomyelitis; Cellulitis does involve the anterior surface of the tibia but there is no periosteal reaction to suggest an osteomyelitis at this point. Area in center of infection has started to drain. Culture shows MRSA. US showed: 4 x 3 x 1 cm complex fluid collection in the superficial soft tissues of the right calf. Surgical consult appreciated. - continue IV vancomycin. - Pain control with a bowel regimen. - Follow blood and wound culture data. - Physical therapy. - I&D per surgery 03/05. Folliculitis Noted in his left armpit. - Continue vancomycin and monitor. Hypertension Exacerbated by pain. Seems resolved. - Continue home medications. - Vasotec as needed. Morbid obesity The patient has a BMI of 46.2. - Weight loss strongly recommended. Drug reaction/ Rash The pt has a rash on his back and lower extremities. Did not improve by switching vanco to clindamycin. May be s/t pain meds. - switch pain meds to [facility] and morphine. Improved. - Solumedrol and Benadryl as needed. PPx: Lovenox. Discharge Planning Awaiting clinical improvement. Cabrera Nye DO March 05, 2017 10:52
--- NOTE | 2017-03-05 12:09 | HHI.PR ---
cc: Cabrera Kumari MD Immediate Post Op Note Procedure Date: March 05, 2017 Pre Op Diagnosis: Right leg abscess Post Op Diagnosis: Same Surgeon: Cabrera Kumari Penology Teacher(s): Nancy Downey CST Procedure: Incision and drainage RIGHT lower leg abscess Complications: None Specimen(s) removed: None Estimated blood loss: 75 ml Anesthesia: LMA Drains: None IVF (350 ml) Patient to: PACU Patient Condition: Good Date/Time of Procedure: SEE SURGICAL CARE RECORD Cabrera Kumari MD March 05, 2017 12:09
[2017-03-05] MEDS ORDERED: *HYDROmorphone PF 1 MG VIAL PERIprocedural Use ONLY ONE ×2 (12:27→13:03)
[2017-03-05] MEDS: HYDROmorphone HCL PF 2 MG/ML VIAL IV PUSH PRN ×3 (14:20→22:43)
[2017-03-05] MEDS: PRAVASTATIN SOD 40 MG TAB PO SCH (20:43)
[2017-03-05] MEDS: ACETAMINOPHEN/HYDROcodone 325 MG/10 MG TAB PO PRN (20:50)
--- NOTE | 2017-03-05 22:41 | EKG ---
Date Performed: 03/05/2017 Time Performed: 06:14:04 PTAGE: 56 years EKG: Sinus rhythm Leftward axis Borderline ECG PREVIOUS TRACING : 09/27/2009 23.43 Compared to prior tracing no significant change DOCTOR: John Denny Interpretating Date/Time 03/05/2017 22:40:43
[2017-03-05] MEDS: ZOLPIDEM TARTRATE 5 MG TAB PO PRN (22:42)
[2017-03-06] VITALS (7 sets, daily range): BP systolic 101–155; BP diastolic 55–96; PULSE 71–101; RESP 18–20; TEMP 97.4–99; O2SAT 95–99
[2017-03-06] MEDS ORDERED: VANCOMYCIN TROUGH ONE (00:45)
[2017-03-06] MEDS: ACETAMINOPHEN/HYDROcodone 325 MG/10 MG TAB PO PRN ×3 (01:04→20:01)
[2017-03-06] MEDS: VANCOMYCIN INJ 2,500 MG in SODIUM CHLORID 0.9% 500 ML INJ 500 ML IV SCH ×2 (01:47→20:22)
[2017-03-06] MEDS: HYDROmorphone HCL PF 2 MG/ML VIAL IV PUSH PRN ×4 (06:03→21:42)
[2017-03-06 06:34] LABS: AUTOMATED NEUTROPHIL # 3.6 TH/MM3 (1.8-7.7); BASOPHIL % 0.5 % (0.0-2.0); EOSINOPHIL # 0.2 TH/MM3 (0-0.4); EOSINOPHIL % 3.1 % (0.0-4.0); HEMATOCRIT 36.5 % (39.0-51.0); HEMO FLAGS DIFF FINAL; LYMPH % 25.6 % (9.0-44.0); LYMPHOCYTE # 1.5 TH/MM3 (1.0-4.8); MEAN CELL VOLUME 87.3 FL (80.0-100.0); MONO % 9.2 % (0.0-8.0); NEUT % 61.6 % (16.0-70.0); PLATELET COUNT 232 TH/MM3 (150-450); RED BLOOD COUNT 4.18 MIL/MM3 (4.50-5.90); RED CELL DISTRIBUTION WIDTH 13.1 % (11.6-17.2); WHITE BLOOD COUNT 5.8 TH/MM3 (4.0-11.0)
--- NOTE | 2017-03-06 07:51 | HHI.PR ---
Subjective Subjective Notes Sitting on the side of the bed Reports pain in RIGHT leg Objective Vitals/I&O Vital Signs Date Time Temp Pulse Resp B/P Pulse Ox O2 Delivery O2 Flow Rate FiO2 03/06/17 00:00 97.8 71 20 101/55 97 03/05/17 19:30 21 03/05/17 13:15 Room Air Labs Laboratory Tests Test 03/06/17 03/06/17 01:15 05:25 Vancomycin Level Trough 22.6 White Blood Count 5.8 Red Blood Count 4.18 Hemoglobin 11.7 Hematocrit 36.5 Mean Corpuscular Volume 87.3 Mean Corpuscular Hemoglobin 28.0 Mean Corpuscular Hemoglobin 32.0 Concent Red Cell Distribution Width 13.1 Platelet Count 232 Mean Platelet Volume 7.3 Neutrophils (%) (Auto) 61.6 Lymphocytes (%) (Auto) 25.6 Monocytes (%) (Auto) 9.2 Eosinophils (%) (Auto) 3.1 Basophils (%) (Auto) 0.5 Neutrophils # (Auto) 3.6 Lymphocytes # (Auto) 1.5 Monocytes # (Auto) 0.5 Eosinophils # (Auto) 0.2 Basophils # (Auto) 0.0 CBC Comment DIFF FINAL Differential Comment Date/Time Procedure Status Source Growth 03/02/17 22:00 Gram Stain - Final Complete Wound Leg 03/02/17 22:00 Wound Culture - Final Complete S. Aureus Mrsa 03/02/17 14:43 Aerobic Blood Culture - Preliminary Resulted Blood Peripheral NO GROWTH IN 3 DAYS 03/02/17 14:43 Anaerobic Blood Culture - Preliminary Resulted Blood Peripheral NO GROWTH IN 3 DAYS Cardiovascular: Regular Lungs: Clear Abdomen: Non-distended, Non-tender Extremities: Other Narrative Exam RIGHT leg----calf Wound Vac in place with good seal; minimal drainage in canister of Wound Vac A/P Assessment and Plan 56 year old male POD1 I&D RIGHT calf Wound Vac -Continue antibiotics -Pain control -Encouraged mobilization and OOB -Regular diet Attending Note - Dr. Kumari Still reports fairly severe pain RLE Some erythema near wound edges Continue VAC Will likely require VAC change in OR due to pain level The exam, history, and the medical decision-making described in the above note were completed with the assistance of the mid-level provider. I reviewed and agree with the findings presented. I attest that I had a [id number] encounter with the patient on the same day, and personally performed and documented my assessment and findings in the medical record. Aline Adam March 06, 2017 07:51 Cabrera Kumari MD March 06, 2017 12:06
[2017-03-06] MEDS: LACTOBACILLUS ACIDOPHILUS TAB PO SCH ×3 (08:45→17:41)
[2017-03-06] MEDS: ASPIRIN EC 81 MG TABEC PO SCH (08:45)
[2017-03-06] MEDS: SODIUM CHLORIDE 0.9% FLUSH 10 ML FLUSH IV FLUSH SCH ×2 (09:00→21:00)
[2017-03-06] MEDS: DOCUSATE SODIUM 100 MG CAP PO SCH ×2 (09:00→21:42)
[2017-03-06] MEDS: LISINOPRIL 20 MG TAB PO SCH (09:34)
[2017-03-06] MEDS: HYDROCHLOROTHIAZIDE 12.5 MG CAP PO SCH (09:35)
--- NOTE | 2017-03-06 10:38 | MP ---
cc: GOVIND RUIZ M.D. DATE OF SURGERY: 03/05/2017 PROCEDURE Incision and drainage right posterior lower leg abscess. PREOPERATIVE DIAGNOSIS Right posterior lower leg abscess. POSTOPERATIVE DIAGNOSIS Right posterior lower leg abscess. ANESTHESIA LMA. SURGEON Quoc ESTIMATED BLOOD LOSS 75 mL. FLUIDS 350 mL crystalloid COMPLICATIONS None. DRAINS None. SPECIMEN None. PROCEDURE IN DETAIL The patient was taken to the operating room after marking the site in pre-op holding and confirming this with the patient. He was taken to the operating room and placed on the operating table in the supine position. After laryngeal mask anesthesia was instituted the patient was placed in a left lateral decubitus position. The right posterior thigh was prepped and draped. A timeout was taken confirming the correct patient, site and procedure to be performed. A longitudinal incision was made more posteriorly so as to avoid injury to the peroneal nerve. There was some tunneling under the skin and this was probed with a Janelle hemostat. Tunnels were all opened and these were irrigated. Nonviable skin was trimmed back sharply to bleeding edges. At this point after irrigation bleeding was controlled with electrocautery in the skin edges. The patient had all remaining viable tissue and thus a VAC dressing was applied. Strips of sponge were placed into the tunnel areas and the VAC dressing applied at -125 continuous suction. The patient was then extubated and taken back to the recovery room in stable condition. Sponge and needle counts were reported to be correct. The patient tolerated the procedure well. MD YARIEL Talavera/CHICHI /12:18 PM /10:33 AM
--- NOTE | 2017-03-06 10:51 | HHI.PR ---
Subjective Remarks The patient was asking for something for itching. He was wondering if he could have another dose of steroids. He says his pain is not well controlled. He said he talked to the surgeons today. No other acute complaints. Objective Vitals Vital Signs Date Time Temp Pulse Resp B/P Pulse Ox O2 Delivery O2 Flow Rate FiO2 03/06/17 09:00 95 21 03/06/17 08:00 98.3 73 18 155/95 95 03/06/17 00:00 97.8 71 20 101/55 97 03/05/17 20:00 97.8 74 20 105/55 96 03/05/17 19:30 97 21 03/05/17 16:00 96.4 79 20 113/75 97 03/05/17 15:53 98 21 03/05/17 13:15 98.0 70 16 119/66 100 Room Air 03/05/17 13:15 70 03/05/17 13:00 79 16 119/61 98 Room Air 03/05/17 12:45 81 16 115/56 94 Room Air 03/05/17 12:30 87 16 118/61 97 Room Air 03/05/17 12:22 92 03/05/17 12:22 97.8 92 16 127/52 96 Room Air 03/05/17 12:00 97.0 77 20 110/66 97 I/O 03/05/17 03/05/17 03/05/17 03/06/17 03/06/17 03/06/17 07:00 15:00 23:00 07:00 15:00 23:00 Intake Total 1380 ml 700 ml 962 ml Output Total 300 ml Balance 1380 ml 700 ml 662 ml Intake Oral 580 ml 0 ml 420 ml IV Total 800 ml 542 ml Other 700 ml Output Urine Total 300 ml # Voids 2 0 3 # Bowel Movements 0 0 Result Diagram: 03/06/17 0525 03/04/17 0641 Imaging Last Impressions Lower Extremity Ultrasound 03/04/17 0000 Signed Impressions: Service Date/Time: Saturday, March 04, 2017 11:54 - CONCLUSION: 4 x 3 x 1 cm complex fluid collection in the superficial soft tissues of the right calf suggesting abscess in the proper clinical setting. Sy Finch MD Lower Extremity CT 03/02/17 0000 Signed Impressions: Service Date/Time: Thursday, March 02, 2017 15:20 - CONCLUSION: 1. Marked superficial cellulitis without defined deep space abscess or osteomyelitis. 2. Cellulitis does involve the anterior surface of the tibia but there is no periosteal reaction to suggest an osteomyelitis at this point. 3. Extensive venous varicosity evident. Noe Burks MD FACR Objective Remarks GENERAL: Awake and alert, in no acute distress. SKIN: Right calf is erythematous from just below the knee to just above the ankle, warm to the touch and tender to palpation. HEAD: Atraumatic. Normocephalic. EYES: Pupils equal and round. No scleral icterus. ENT: Mucous membranes pink and moist. NECK: Trachea midline. No JVD. CARDIOVASCULAR: Regular rate and rhythm. No murmur appreciated. RESPIRATORY: No accessory muscle use. Clear to auscultation. Breath sounds equal bilaterally. GASTROINTESTINAL: Abdomen soft, non-tender, nondistended. Hepatic and splenic margins not palpable. MUSCULOSKELETAL: No obvious deformities. No clubbing. No cyanosis. 2+ edema of the right lower extremity. Wound vac in place. NEUROLOGICAL: Awake and alert. No obvious cranial nerve deficits. Motor grossly within normal limits. Normal speech. PSYCHIATRIC: Appropriate mood and affect; insight and judgment normal. Procedures I&D 03/05/17. Medications and IVs Current Medications Medications (Trade) Dose Ordered Sig/Chandan Route Start Time Stop Time Status Last Admin (Ecotrin Ec) 81 mg DAILY PO 03/03/17 09:00 03/06/17 08:45 (Microzide) 12.5 mg DAILY PO 03/03/17 09:00 03/06/17 09:35 (Prinivil) 40 mg DAILY PO 03/03/17 09:00 03/06/17 09:34 (Pravachol) 80 mg HS PO 03/02/17 21:00 03/05/17 20:43 (NS Flush) 2 ml UNSCH PRN IV FLUSH 03/02/17 17:15 (NS Flush) 2 ml BID IV FLUSH 03/02/17 21:00 03/06/17 09:00 (Tylenol) 650 mg Q4H PRN PO 03/02/17 17:15 03/03/17 07:30 (Colace) 100 mg Q12H PO 03/02/17 21:00 03/05/17 20:43 (Senokot) 17.2 mg Q12H PRN PO 03/02/17 17:15 (Ambien) 5 mg HS PRN PO 03/02/17 17:15 03/05/17 22:42 (Narcan Inj) 0.4 mg UNSCH PRN IV 03/02/17 17:15 (Vasotec Inj) 1.25 mg Q6H PRN IV PUSH 03/02/17 18:00 Lactobacillus Acidophilus 1 tab 1 tab TID PO 03/03/17 13:00 03/06/17 08:45 Vancomycin HCl 2500 mg/Sodium Chloride 525 ml @ 250 mls/hr Q12H IV 03/04/17 13:00 03/06/17 01:47 (Vancomycin Consult Pharmacy) 0 ml @ 0 mls/hr UNSCH OTHER 03/04/17 12:00 ([facility] 5-325 Mg) 1 tab Q4H PRN PO 03/04/17 10:45 ([facility] 10-325 Mg) 1 tab Q4H PRN PO 03/04/17 10:45 03/06/17 01:04 Morphine Sulfate 4 mg 4 mg Q4HR PRN IV PUSH 03/04/17 10:45 03/05/17 06:37 (Lr 1000 ml Inj) 1,000 ml @ 30 mls/hr Q24H PRN IV 03/05/17 02:30 03/08/17 02:29 03/05/17 10:30 (Lovenox Inj) 40 mg Q24H SQ 03/06/17 12:00 (Dilaudid Pf Inj) 2 mg Q4H PRN IV PUSH 03/05/17 12:15 03/06/17 08:47 (Atarax) 25 mg Q6H PRN PO 03/06/17 10:45 UNV A/P Assessment and Plan Right lower extremity cellulitis The patient sustained cellulitis after scratching his legs secondary to flea bites. He failed an outpatient course of Bactrim. He was started on IV vancomycin in the emergency department. CT of the leg showed: Marked superficial cellulitis without defined deep space abscess or osteomyelitis; Cellulitis does involve the anterior surface of the tibia but there is no periosteal reaction to suggest an osteomyelitis at this point. Area in center of infection has started to drain. Culture shows MRSA. US showed: 4 x 3 x 1 cm complex fluid collection in the superficial soft tissues of the right calf. Surgical consult appreciated. Status post I&D with wound VAC placement . - continue IV vancomycin. - Pain control with a bowel regimen. - Follow blood cultures. - Physical therapy. - Follow up with surgery. Folliculitis Noted in his left armpit. - Continue vancomycin and monitor. Improving. Hypertension Exacerbated by pain. - Continue home medications. - Vasotec as needed. - Pain control. Morbid obesity The patient has a BMI of 46.2. - Weight loss strongly recommended. Drug reaction/ Rash The pt has a rash on his back and lower extremities. Did not improve by switching vanco to clindamycin. May be s/t pain meds. - switch pain meds to [place] and morphine. Improved. - Atarax as needed. PPx: Lovenox. Discharge Planning Awaiting surgical clearance. Cabrera Nye DO March 06, 2017 10:50
[2017-03-06] MEDS: SENNOSIDES 8.6 MG TAB PO SCH (11:00)
[2017-03-06] MEDS: ENOXAPARIN SODIUM 40 MG/0.4 ML SYRINGE SQ SCH (12:40)
[2017-03-06] MEDS: hydrOXYzine HCL 25 MG TAB PO PRN (20:01)
[2017-03-06] MEDS: ZOLPIDEM TARTRATE 5 MG TAB PO PRN (21:42)
[2017-03-06] MEDS: PRAVASTATIN SOD 40 MG TAB PO SCH (21:42)
[2017-03-07] VITALS: BP 116/62; PULSE 99; RESP 20; TEMP 98.4; O2SAT 94
[2017-03-07] MEDS: HYDROmorphone HCL PF 2 MG/ML VIAL IV PUSH PRN (02:15)
[2017-03-07] MEDS: ACETAMINOPHEN/HYDROcodone 325 MG/10 MG TAB PO PRN (05:16)
[2017-03-07 08:00] VITALS: BP 123/80; PULSE 88; RESP 16; TEMP 96.2; O2SAT 95
[2017-03-07] MEDS: ASPIRIN EC 81 MG TABEC PO SCH (09:41)
[2017-03-07] MEDS: DOCUSATE SODIUM 100 MG CAP PO SCH ×2 (09:41→21:00)
[2017-03-07] MEDS: HYDROCHLOROTHIAZIDE 12.5 MG CAP PO SCH (09:42)
[2017-03-07] MEDS: LISINOPRIL 20 MG TAB PO SCH (09:42)
[2017-03-07] MEDS: LACTOBACILLUS ACIDOPHILUS TAB PO SCH ×3 (09:42→18:35)
[2017-03-07] MEDS: SENNOSIDES 8.6 MG TAB PO SCH (09:42)
[2017-03-07] MEDS: SODIUM CHLORIDE 0.9% FLUSH 10 ML FLUSH IV FLUSH SCH ×2 (09:46→21:00)
--- NOTE | 2017-03-07 10:05 | HHI.PR ---
Subjective Remarks The patient was resting in a chair. He said he just worked with physical therapy. He said his right leg was still swollen and painful. He said the new itching medication helped a lot. He wanted a regular diet. Discussed with nursing. Objective Vitals Vital Signs Date Time Temp Pulse Resp B/P Pulse Ox O2 Delivery O2 Flow Rate FiO2 03/07/17 08:00 96.2 88 16 123/80 95 03/07/17 00:00 98.4 99 20 116/62 94 03/06/17 20:00 97.4 95 20 126/93 97 03/06/17 19:15 97 21 03/06/17 16:00 99.0 90 18 143/94 99 03/06/17 12:00 98.9 101 18 143/96 97 I/O 03/06/17 03/06/17 03/06/17 03/07/17 03/07/17 03/07/17 07:00 15:00 23:00 07:00 15:00 23:00 Intake Total 962 ml 2060 ml 480 ml Output Total 300 ml 627 ml 600 ml Balance 662 ml 1433 ml -120 ml Intake Oral 420 ml 2060 ml 480 ml IV Total 542 ml Output Urine Total 300 ml 625 ml 600 ml Stool Total 2 ml # Voids 7 2 # Bowel Movements 0 0 0 Result Diagram: 03/06/17 0525 03/07/17 0542 Imaging Last Impressions Lower Extremity Ultrasound 03/04/17 0000 Signed Impressions: Service Date/Time: Saturday, March 04, 2017 11:54 - CONCLUSION: 4 x 3 x 1 cm complex fluid collection in the superficial soft tissues of the right calf suggesting abscess in the proper clinical setting. Sy Finch MD Lower Extremity CT 03/02/17 0000 Signed Impressions: Service Date/Time: Thursday, March 02, 2017 15:20 - CONCLUSION: 1. Marked superficial cellulitis without defined deep space abscess or osteomyelitis. 2. Cellulitis does involve the anterior surface of the tibia but there is no periosteal reaction to suggest an osteomyelitis at this point. 3. Extensive venous varicosity evident. Noe Burks MD FACR Objective Remarks GENERAL: Awake and alert, in no acute distress. SKIN: Right calf is erythematous from just below the knee to just above the ankle, warm to the touch and tender to palpation. HEAD: Atraumatic. Normocephalic. EYES: Pupils equal and round. No scleral icterus. ENT: Mucous membranes pink and moist. NECK: Trachea midline. No JVD. CARDIOVASCULAR: Regular rate and rhythm. No murmur appreciated. RESPIRATORY: No accessory muscle use. Clear to auscultation. Breath sounds equal bilaterally. GASTROINTESTINAL: Abdomen soft, non-tender, nondistended. Hepatic and splenic margins not palpable. MUSCULOSKELETAL: No obvious deformities. No clubbing. No cyanosis. 2+ edema of the right lower extremity. Wound vac in place. NEUROLOGICAL: Awake and alert. No obvious cranial nerve deficits. Motor grossly within normal limits. Normal speech. PSYCHIATRIC: Appropriate mood and affect; insight and judgment normal. Procedures I&D 03/05/17. Medications and IVs Current Medications Medications (Trade) Dose Ordered Sig/Chandan Route Start Time Stop Time Status Last Admin (Ecotrin Ec) 81 mg DAILY PO 03/03/17 09:00 03/07/17 09:41 (Microzide) 12.5 mg DAILY PO 03/03/17 09:00 03/07/17 09:42 (Prinivil) 40 mg DAILY PO 03/03/17 09:00 03/07/17 09:42 (Pravachol) 80 mg HS PO 03/02/17 21:00 03/06/17 21:42 (NS Flush) 2 ml UNSCH PRN IV FLUSH 03/02/17 17:15 (NS Flush) 2 ml BID IV FLUSH 03/02/17 21:00 03/07/17 09:46 (Tylenol) 650 mg Q4H PRN PO 03/02/17 17:15 03/03/17 07:30 (Colace) 100 mg Q12H PO 03/02/17 21:00 03/07/17 09:41 (Ambien) 5 mg HS PRN PO 03/02/17 17:15 03/06/17 21:42 (Narcan Inj) 0.4 mg UNSCH PRN IV 03/02/17 17:15 (Vasotec Inj) 1.25 mg Q6H PRN IV PUSH 03/02/17 18:00 Lactobacillus Acidophilus 1 tab 1 tab TID PO 03/03/17 13:00 03/07/17 09:42 (Vancomycin Consult Pharmacy) 0 ml @ 0 mls/hr UNSCH OTHER 03/04/17 12:00 Acetaminophen/ Hydrocodone Bitart 1 tab 1 tab Q4H PRN PO 03/04/17 10:45 (Lr 1000 ml Inj) 1,000 ml @ 30 mls/hr Q24H PRN IV 03/05/17 02:30 03/08/17 02:29 03/05/17 10:30 (Lovenox Inj) 40 mg Q24H SQ 03/06/17 12:00 03/06/17 12:40 (Dilaudid Pf Inj) 2 mg Q4H PRN IV PUSH 03/05/17 12:15 03/07/17 02:15 (Atarax) 25 mg Q6H PRN PO 03/06/17 10:45 03/06/17 20:01 ([place] 10-325 Mg) 2 tab Q4H PRN PO 03/06/17 12:30 03/07/17 05:16 Sennosides 17.2 mg 17.2 mg DAILY PO 03/06/17 11:00 03/07/17 09:42 (Vancomycin Inj/ NS 500 ml Inj) 525 ml @ 250 mls/hr Q18H IV 03/06/17 20:00 03/06/17 20:22 Miscellaneous Information SPECIFIC LAB TO BE DRAWN:VANCO TROUGH DATE... ONCE ONCE .XX 03/07/17 13:45 03/07/17 13:46 A/P Assessment and Plan Right lower extremity cellulitis The patient sustained cellulitis after scratching his legs secondary to flea bites. He failed an outpatient course of Bactrim. He was started on IV vancomycin in the emergency department. CT of the leg showed: Marked superficial cellulitis without defined deep space abscess or osteomyelitis; Cellulitis does involve the anterior surface of the tibia but there is no periosteal reaction to suggest an osteomyelitis at this point. Area in center of infection has started to drain. Culture shows MRSA. US showed: 4 x 3 x 1 cm complex fluid collection in the superficial soft tissues of the right calf. Surgical consult appreciated. Status post I&D with wound VAC placement . - continue IV vancomycin. - Pain control with a bowel regimen. - Follow blood cultures. - Physical therapy. - Follow up with surgery. Plan for wound vac change in OR on . Folliculitis Noted in his left armpit. - Continue vancomycin and monitor. Improving. Hypertension Exacerbated by pain. - Continue home medications. - Vasotec as needed. - Pain control. Morbid obesity The patient has a BMI of 46.2. - Weight loss strongly recommended. Drug reaction/ Rash The pt has a rash on his back and lower extremities. Did not improve by switching vanco to clindamycin. May be s/t pain meds. - switch pain meds to [place] and morphine. - Atarax as needed. Improved. PPx: Lovenox. Discharge Planning Awaiting surgical clearance. Cabrera Nye DO March 07, 2017 10:05
[2017-03-07 12:00] VITALS: BP 136/86; PULSE 91; RESP 16; TEMP 96; O2SAT 97
[2017-03-07] MEDS ORDERED: PHARMACY ORDERED LAB ONE (13:45)
[2017-03-07] MEDS: VANCOMYCIN INJ 2,500 MG in SODIUM CHLORID 0.9% 500 ML INJ 500 ML IV SCH (14:17)
[2017-03-07] MEDS: ENOXAPARIN SODIUM 40 MG/0.4 ML SYRINGE SQ SCH (14:20)
[2017-03-07 16:00] VITALS: BP 130/83; PULSE 89; RESP 16; TEMP 96.2; O2SAT 97
--- NOTE | 2017-03-07 17:04 | HHI.PR ---
Subjective Subjective Notes Pain is somewhat less Objective Vitals/I&O Vital Signs Date Time Temp Pulse Resp B/P Pulse Ox O2 Delivery O2 Flow Rate FiO2 03/07/17 16:00 96.2 89 16 130/83 97 03/07/17 08:00 21 03/05/17 13:15 Room Air Labs Laboratory Tests Test 03/07/17 03/07/17 05:42 14:00 Creatinine 0.88 Estimat Glomerular Filtration 90 Rate Vancomycin Level Trough 12.9 Date/Time Procedure Status Source Growth 03/02/17 22:00 Gram Stain - Final Complete Wound Leg 03/02/17 22:00 Wound Culture - Final Complete S. Aureus Mrsa Lungs: Clear Abdomen: Non-distended Narrative Exam Lower leg erythematous medial to incision Moderately tender to palpation still A/P Assessment and Plan 56 year old male POD #2 I&D RIGHT calf with Wound Vac Too painful for bedside change Will go to OR tomorrow for VAC change and wound irrigation May be able to do bedside change this weekend and/or start wet to dry dressing changes Cabrera Kumari MD March 07, 2017 17:04
[2017-03-07 19:45] VITALS: O2SAT 96
[2017-03-07 20:00] VITALS: BP 153/91; PULSE 85; RESP 20; TEMP 98.7; O2SAT 97
[2017-03-07] MEDS: PRAVASTATIN SOD 40 MG TAB PO SCH (21:00)
[2017-03-08] VITALS: BP 121/81; PULSE 85; RESP 20; TEMP 98.3; O2SAT 97
[2017-03-08] MEDS: ZOLPIDEM TARTRATE 5 MG TAB PO PRN ×2 (00:24→21:20)
[2017-03-08 06:43] LABS: HEMATOCRIT 35.8 % (39.0-51.0); MEAN CELL VOLUME 86.9 FL (80.0-100.0); MEAN CORPUSCULAR HEMOGLOBIN 29.1 PG (27.0-34.0); MEAN CORPUSCULAR HGB CONC 33.5 % (32.0-36.0); PLATELET COUNT 241 TH/MM3 (150-450); RED BLOOD COUNT 4.12 MIL/MM3 (4.50-5.90); RED CELL DISTRIBUTION WIDTH 12.9 % (11.6-17.2); REVIEW FLAG FINAL; WHITE BLOOD COUNT 7.3 TH/MM3 (4.0-11.0)
[2017-03-08 06:54] LABS: POTASSIUM 3.7 MEQ/L (3.5-5.1)
[2017-03-08 07:01] LABS: BICARBONATE 29.8 MEQ/L (21.0-32.0)
[2017-03-08 08:00] VITALS: BP 156/89; PULSE 93; RESP 20; TEMP 97.6; O2SAT 97
[2017-03-08] MEDS: DOCUSATE SODIUM 100 MG CAP PO SCH ×2 (09:00→19:35)
[2017-03-08] MEDS: SENNOSIDES 8.6 MG TAB PO SCH (09:00)
--- NOTE | 2017-03-08 09:01 | HHI.PR ---
Subjective Remarks The patient said his pain was much improved. He said he has not been requiring as much pain medications. He has been ambulating. He said he was told he would be going for the wound VAC change at around 1 PM. No acute complaints. Objective Vitals Vital Signs Date Time Temp Pulse Resp B/P Pulse Ox O2 Delivery O2 Flow Rate FiO2 03/08/17 08:00 97.6 93 20 156/89 97 03/08/17 00:00 98.3 85 20 121/81 97 03/07/17 20:00 98.7 85 20 153/91 97 03/07/17 19:45 96 21 03/07/17 16:00 96.2 89 16 130/83 97 03/07/17 12:00 96.0 91 16 136/86 97 I/O 03/07/17 03/07/17 03/07/17 03/08/17 03/08/17 03/08/17 07:00 15:00 23:00 07:00 15:00 23:00 Intake Total 480 ml 900 ml 0 ml Output Total 600 ml 750 ml 675 ml Balance -120 ml 900 ml -750 ml -675 ml Intake Oral 480 ml 900 ml 0 ml Output Urine Total 600 ml 750 ml 675 ml # Voids 2 3 1 # Bowel Movements 0 1 1 1 Result Diagram: 03/08/17 0550 03/08/17 0550 Imaging Last Impressions Lower Extremity Ultrasound 03/04/17 0000 Signed Impressions: Service Date/Time: Saturday, March 04, 2017 11:54 - CONCLUSION: 4 x 3 x 1 cm complex fluid collection in the superficial soft tissues of the right calf suggesting abscess in the proper clinical setting. Sy Finch MD Lower Extremity CT 03/02/17 0000 Signed Impressions: Service Date/Time: Thursday, March 02, 2017 15:20 - CONCLUSION: 1. Marked superficial cellulitis without defined deep space abscess or osteomyelitis. 2. Cellulitis does involve the anterior surface of the tibia but there is no periosteal reaction to suggest an osteomyelitis at this point. 3. Extensive venous varicosity evident. Noe Burks MD FACR Objective Remarks GENERAL: Awake and alert, in no acute distress. SKIN: Right calf is erythematous from just below the knee to just above the ankle, warm to the touch and tender to palpation. HEAD: Atraumatic. Normocephalic. EYES: Pupils equal and round. No scleral icterus. ENT: Mucous membranes pink and moist. NECK: Trachea midline. No JVD. CARDIOVASCULAR: Regular rate and rhythm. No murmur appreciated. RESPIRATORY: No accessory muscle use. Clear to auscultation. Breath sounds equal bilaterally. GASTROINTESTINAL: Abdomen soft, non-tender, nondistended. Hepatic and splenic margins not palpable. MUSCULOSKELETAL: No obvious deformities. No clubbing. No cyanosis. 2+ edema of the right lower extremity. Wound vac in place. NEUROLOGICAL: Awake and alert. No obvious cranial nerve deficits. Motor grossly within normal limits. Normal speech. PSYCHIATRIC: Appropriate mood and affect; insight and judgment normal. Procedures I&D 03/05/17. Medications and IVs Current Medications Medications (Trade) Dose Ordered Sig/Chandan Route Start Time Stop Time Status Last Admin (Ecotrin Ec) 81 mg DAILY PO 03/03/17 09:00 03/07/17 09:41 (Microzide) 12.5 mg DAILY PO 03/03/17 09:00 03/07/17 09:42 (Prinivil) 40 mg DAILY PO 03/03/17 09:00 03/07/17 09:42 (Pravachol) 80 mg HS PO 03/02/17 21:00 03/06/17 21:42 (NS Flush) 2 ml UNSCH PRN IV FLUSH 03/02/17 17:15 (NS Flush) 2 ml BID IV FLUSH 03/02/17 21:00 03/07/17 21:00 (Tylenol) 650 mg Q4H PRN PO 03/02/17 17:15 03/03/17 07:30 (Colace) 100 mg Q12H PO 03/02/17 21:00 03/07/17 09:41 (Ambien) 5 mg HS PRN PO 03/02/17 17:15 03/08/17 00:24 (Narcan Inj) 0.4 mg UNSCH PRN IV 03/02/17 17:15 (Vasotec Inj) 1.25 mg Q6H PRN IV PUSH 03/02/17 18:00 Lactobacillus Acidophilus 1 tab 1 tab TID PO 03/03/17 13:00 03/07/17 18:35 (Vancomycin Consult Pharmacy) 0 ml @ 0 mls/hr UNSCH OTHER 03/04/17 12:00 Acetaminophen/ Hydrocodone Bitart 1 tab 1 tab Q4H PRN PO 03/04/17 10:45 03/08/17 06:17 (Lr 1000 ml Inj) 1,000 ml @ 100 mls/hr Q10H PRN IV 03/05/17 02:30 03/05/17 10:30 (Lovenox Inj) 40 mg Q24H SQ 03/06/17 12:00 03/07/17 14:20 (Dilaudid Pf Inj) 2 mg Q4H PRN IV PUSH 03/05/17 12:15 03/07/17 02:15 (Atarax) 25 mg Q6H PRN PO 03/06/17 10:45 03/06/17 20:01 Sennosides 17.2 mg 17.2 mg DAILY PO 03/06/17 11:00 03/07/17 09:42 (Vancomycin Inj/ NS 500 ml Inj) 525 ml @ 250 mls/hr Q18H IV 03/06/17 20:00 03/07/17 14:17 ([place] 10-325 Mg) 1 tab Q4H PRN PO 03/08/17 08:30 A/P Assessment and Plan Right lower extremity cellulitis The patient sustained cellulitis after scratching his legs secondary to flea bites. He failed an outpatient course of Bactrim. He was started on IV vancomycin in the emergency department. CT of the leg showed: Marked superficial cellulitis without defined deep space abscess or osteomyelitis; Cellulitis does involve the anterior surface of the tibia but there is no periosteal reaction to suggest an osteomyelitis at this point. Area in center of infection has started to drain. Culture shows MRSA. US showed: 4 x 3 x 1 cm complex fluid collection in the superficial soft tissues of the right calf. Surgical consult appreciated. Status post I&D with wound VAC placement . Blood cultures negative. - continue IV vancomycin. - Pain control with a bowel regimen. - Physical therapy. - Follow up with surgery. Plan for wound vac change in OR today. Folliculitis Noted in his left armpit. - Continue vancomycin and monitor. Improving. Hypertension Exacerbated by pain. Stable. - Continue home medications. - Vasotec as needed. - Pain control. Morbid obesity The patient has a BMI of 46.2. - Weight loss strongly recommended. Drug reaction/ Rash The pt has a rash on his back and lower extremities. Did not improve by switching vanco to clindamycin. May be s/t pain meds. - switched pain meds to [place] and morphine. - Atarax as needed. Improved. PPx: Lovenox. Discharge Planning Awaiting surgical clearance. Cabrera Nye DO March 08, 2017 09:01
[2017-03-08] MEDS: HYDROCHLOROTHIAZIDE 12.5 MG CAP PO SCH (10:06)
[2017-03-08] MEDS: LISINOPRIL 20 MG TAB PO SCH (10:06)
[2017-03-08] MEDS: LACTOBACILLUS ACIDOPHILUS TAB PO SCH ×3 (10:06→16:59)
[2017-03-08] MEDS: ASPIRIN EC 81 MG TABEC PO SCH (10:07)
[2017-03-08] MEDS: ENOXAPARIN SODIUM 40 MG/0.4 ML SYRINGE SQ SCH (10:08)
[2017-03-08] MEDS: VANCOMYCIN INJ 2,500 MG in SODIUM CHLORID 0.9% 500 ML INJ 500 ML IV SCH (10:09)
[2017-03-08] MEDS: SODIUM CHLORIDE 0.9% FLUSH 10 ML FLUSH IV FLUSH SCH ×2 (10:10→19:34)
[2017-03-08 12:00] VITALS: BP 153/87; PULSE 89; RESP 18; TEMP 98.1; O2SAT 96
[2017-03-08] MEDS ORDERED: PROPOFOL 200 MG/20 ML AMP IV ONE (14:00)
[2017-03-08] MEDS ORDERED: BUPIVACAINE HCL PF 0.5% 30 ML VIAL ONE (14:45)
[2017-03-08 15:08] VITALS: PULSE 92
[2017-03-08 16:00] VITALS: BP 146/83; PULSE 68; RESP 20; TEMP 97.7; O2SAT 97
[2017-03-08] MEDS: PRAVASTATIN SOD 40 MG TAB PO SCH (19:34)
[2017-03-08] MEDS: ACETAMINOPHEN/HYDROcodone 325 MG/10 MG TAB PO PRN (19:34)
[2017-03-08 20:00] VITALS: BP 162/89; PULSE 86; RESP 20; TEMP 98.4; O2SAT 98
[2017-03-08] MEDS: HYDROmorphone HCL PF 2 MG/ML VIAL IV PUSH PRN (21:17)
[2017-03-09] VITALS: BP 115/74; PULSE 82; RESP 20; TEMP 97.3; O2SAT 96
[2017-03-09] MEDS: hydrOXYzine HCL 25 MG TAB PO PRN (01:28)
[2017-03-09] MEDS: ACETAMINOPHEN/HYDROcodone 325 MG/10 MG TAB PO PRN ×2 (01:29→06:45)
[2017-03-09] MEDS: VANCOMYCIN INJ 2,500 MG in SODIUM CHLORID 0.9% 500 ML INJ 500 ML IV SCH ×2 (01:30→20:11)
[2017-03-09 08:00] VITALS: BP 140/98; PULSE 81; RESP 17; TEMP 97.7; O2SAT 98
[2017-03-09] MEDS: HYDROCHLOROTHIAZIDE 12.5 MG CAP PO SCH (08:33)
[2017-03-09] MEDS: ASPIRIN EC 81 MG TABEC PO SCH (08:33)
[2017-03-09] MEDS: LACTOBACILLUS ACIDOPHILUS TAB PO SCH ×3 (08:33→17:25)
[2017-03-09] MEDS: LISINOPRIL 20 MG TAB PO SCH (08:34)
[2017-03-09] MEDS: DOCUSATE SODIUM 100 MG CAP PO SCH ×2 (08:34→20:12)
[2017-03-09] MEDS: SENNOSIDES 8.6 MG TAB PO SCH (08:34)
[2017-03-09] MEDS: SODIUM CHLORIDE 0.9% FLUSH 10 ML FLUSH IV FLUSH SCH ×2 (08:35→20:12)
[2017-03-09] MEDS: ENOXAPARIN SODIUM 40 MG/0.4 ML SYRINGE SQ SCH (11:23)
[2017-03-09 12:00] VITALS: BP 150/99; PULSE 92; RESP 17; TEMP 97.5; O2SAT 96
--- NOTE | 2017-03-09 13:32 | HHI.PR ---
Subjective Remarks Patient states pain is controlled today, however yeterday was given IV Dilaudid and had an allergic reaction with itching and rash denies diarrhea denies fevers or chills pain is controlled Vital signs are stable c/o of erythema and itchiness on groin area Objective Vitals Vital Signs Date Time Temp Pulse Resp B/P Pulse Ox O2 Delivery O2 Flow Rate FiO2 03/09/17 12:00 97.5 92 17 150/99 96 03/09/17 08:00 97.7 81 17 140/98 98 03/09/17 03:15 18 03/09/17 00:00 97.3 82 20 115/74 96 03/08/17 23:08 18 03/08/17 20:00 98.4 86 20 162/89 98 03/08/17 16:00 97.7 68 20 146/83 97 03/08/17 15:35 98.4 86 18 167/94 98 Room Air 03/08/17 15:20 90 16 137/92 94 Room Air 03/08/17 15:08 92 03/08/17 15:08 98.4 90 18 113/62 99 Room Air I/O 03/08/17 03/08/17 03/08/17 03/09/17 03/09/17 03/09/17 07:00 15:00 23:00 07:00 15:00 23:00 Intake Total 0 ml 0 ml 900 ml 740 ml Output Total 675 ml 850 ml 800 ml 650 ml 944 ml Balance -675 ml -850 ml 100 ml 90 ml -944 ml Intake Oral 0 ml 0 ml 240 ml IV Total 500 ml Other 900 ml Output Urine Total 675 ml 850 ml 800 ml 650 ml 944 ml # Voids 1 0 # Bowel Movements 1 1 1 Result Diagram: 03/08/17 0550 03/09/17 0523 Imaging Last Impressions Lower Extremity Ultrasound 03/04/17 0000 Signed Impressions: Service Date/Time: Saturday, March 04, 2017 11:54 - CONCLUSION: 4 x 3 x 1 cm complex fluid collection in the superficial soft tissues of the right calf suggesting abscess in the proper clinical setting. Sy Finch MD Lower Extremity CT 03/02/17 0000 Signed Impressions: Service Date/Time: Thursday, March 02, 2017 15:20 - CONCLUSION: 1. Marked superficial cellulitis without defined deep space abscess or osteomyelitis. 2. Cellulitis does involve the anterior surface of the tibia but there is no periosteal reaction to suggest an osteomyelitis at this point. 3. Extensive venous varicosity evident. Noe Burks MD FACR Objective Remarks GENERAL: Awake and alert, in no acute distress. SKIN: Wound vac in place, right lower extremity shows necrotic tissue with erythema and induration. HEAD: Atraumatic. Normocephalic. EYES: Pupils equal and round. No scleral icterus. ENT: Mucous membranes pink and moist. NECK: Trachea midline. No JVD. CARDIOVASCULAR: Regular rate and rhythm. No murmur appreciated. RESPIRATORY: No accessory muscle use. Clear to auscultation. Breath sounds equal bilaterally. GASTROINTESTINAL: Abdomen soft, non-tender, nondistended. Hepatic and splenic margins not palpable. MUSCULOSKELETAL: No obvious deformities. No clubbing. No cyanosis. 2+ edema of the right lower extremity. Wound vac in place. NEUROLOGICAL: Awake and alert. No obvious cranial nerve deficits. Motor grossly within normal limits. Normal speech. PSYCHIATRIC: Appropriate mood and affect; insight and judgment normal. Procedures I&D 03/05/17. Medications and IVs Current Medications Medications (Trade) Dose Ordered Sig/Chandan Route Start Time Stop Time Status Last Admin (Ecotrin Ec) 81 mg DAILY PO 03/03/17 09:00 03/09/17 08:33 (Microzide) 12.5 mg DAILY PO 03/03/17 09:00 03/09/17 08:33 (Prinivil) 40 mg DAILY PO 03/03/17 09:00 03/09/17 08:34 (Pravachol) 80 mg HS PO 03/02/17 21:00 03/08/17 19:34 (NS Flush) 2 ml UNSCH PRN IV FLUSH 03/02/17 17:15 (NS Flush) 2 ml BID IV FLUSH 03/02/17 21:00 03/09/17 08:35 (Tylenol) 650 mg Q4H PRN PO 03/02/17 17:15 03/03/17 07:30 (Colace) 100 mg Q12H PO 03/02/17 21:00 03/07/17 09:41 (Ambien) 5 mg HS PRN PO 03/02/17 17:15 03/08/17 21:20 (Narcan Inj) 0.4 mg UNSCH PRN IV 03/02/17 17:15 (Vasotec Inj) 1.25 mg Q6H PRN IV PUSH 03/02/17 18:00 Lactobacillus Acidophilus 1 tab 1 tab TID PO 03/03/17 13:00 03/09/17 11:23 (Vancomycin Consult Pharmacy) 0 ml @ 0 mls/hr UNSCH OTHER 03/04/17 12:00 Acetaminophen/ Hydrocodone Bitart 1 tab 1 tab Q4H PRN PO 03/04/17 10:45 03/08/17 06:17 (Lr 1000 ml Inj) 1,000 ml @ 30 mls/hr Q24H PRN IV 03/05/17 02:30 03/05/17 10:30 (Lovenox Inj) 40 mg Q24H SQ 03/06/17 12:00 03/09/17 11:23 (Dilaudid Pf Inj) 2 mg Q4H PRN IV PUSH 03/05/17 12:15 03/08/17 21:17 (Atarax) 25 mg Q6H PRN PO 03/06/17 10:45 03/09/17 01:28 Sennosides 17.2 mg 17.2 mg DAILY PO 03/06/17 11:00 03/07/17 09:42 (Vancomycin Inj/ NS 500 ml Inj) 525 ml @ 250 mls/hr Q18H IV 03/06/17 20:00 03/09/17 01:30 ([place] 10-325 Mg) 1 tab Q4H PRN PO 03/08/17 08:30 03/09/17 06:45 Urinary Catheter: No Vascular Central Line Catheter: No A/P Problem List: (1) Abscess of right lower extremity ICD Code: L02.415 Status: Acute Plan: Failed outpatient treatment for [place] with Bactrim. CT of the leg as described above. Wound culture grew MRSA Ultrasound of the right lower extremity showed a 431 cm complex fluid collection in the superficial soft tissues in the right calf. Surgery consulted. Patient status post I&D with wound VAC placement on . Blood cultures negative 5. Continue IV vancomycin for now. Staph aureus is sensitive to several oral antibiotics. Pharmacy helping with Vancomycin dose. Will consult infectious disease if not previously done. (2) Cellulitis ICD Code: L03.90 Status: Acute Plan: As above. (3) Hollie rash of groin ICD Code: B37.89 Status: Acute Plan: I will start antifungal cream. (4) HTN (hypertension) ICD Code: I10 Status: Acute Plan: stable on lisinopril Assessment and Plan DVT prophylaxis: Lovenox SQ. Problem Qualifiers (1) Cellulitis: Qualified Code: L03.115 - Cellulitis of right lower extremity Lefty Blake MD March 09, 2017 13:32
[2017-03-09] MEDS: MICONAZOLE NITRATE 2% CREAM 15 GM TOPICAL SCH ×2 (15:00→20:12)
[2017-03-09 16:00] VITALS: BP 134/76; PULSE 78; RESP 17; TEMP 98; O2SAT 96
--- NOTE | 2017-03-09 18:40 | HHI.PR ---
Subjective Subjective Notes Still painful, but improving. Objective Vitals/I&O Vital Signs Date Time Temp Pulse Resp B/P Pulse Ox O2 Delivery O2 Flow Rate FiO2 03/09/17 16:00 98.0 78 17 134/76 96 03/08/17 15:35 Room Air 03/07/17 19:45 21 Labs Laboratory Tests Test 03/09/17 05:23 Creatinine 0.68 Estimat Glomerular Filtration 121 Rate Narrative Exam Lower leg erythematous medial to incision Moderately tender to palpation still Bloody drainage in VAC canister. A/P Assessment and Plan 56 year old male POD #4/1 I&D RIGHT calf with Wound Vac Less painful for bedside change now; explained process. May be able to do bedside change this weekend and/or start wet to dry dressing changes Cabrera Kumari MD March 09, 2017 18:40
[2017-03-09 20:09] VITALS: BP 145/70; PULSE 107; RESP 20; TEMP 99.3; O2SAT 93
[2017-03-09] MEDS: PRAVASTATIN SOD 40 MG TAB PO SCH (20:12)
[2017-03-09] MEDS: ZOLPIDEM TARTRATE 5 MG TAB PO PRN (20:12)
--- NOTE | 2017-03-09 22:05 | MP ---
cc: GOVIND RUIZ M.D. DATE OF SURGERY 03/08/2017 PROCEDURE Irrigation and debridement less than 25 square centimeters subcutaneous tissue with VAC replacement. PREOPERATIVE DIAGNOSIS Abscess subcutaneous tissue, right leg. POSTOPERATIVE DIAGNOSIS Abscess subcutaneous tissue, right leg. ANESTHESIA LMA. SURGEON MD Quoc ESTIMATED BLOOD LOSS 50 ml. FLUIDS 600 ml crystalloid. COMPLICATIONS None. DRAINS None. SPECIMEN None. PROCEDURE IN DETAIL The patient was taken to the operating room, placed on the operating table in the supine position. After an adequate level of laryngeal mask anesthesia was instituted the patient was placed in a left lateral decubitus position. The VAC dressing was removed and the leg prepped and draped. Time-out was taken confirming the correct patient, site and procedure to be performed. Subcutaneous tissue that was not viable consisted of small bits of fat in the subcutaneous tissues. This was debrided sharply back to bleeding tissue. A small amount of skin was also sharply debrided back to bleeding tissue. A total of less than 25 cm2 was the debrided. No muscle was removed. All muscle appeared viable. All subcutaneous tissue appeared viable at this point and no purulent pockets were encountered. The wound was copiously irrigated with saline and VAC sponges were reapplied. When this had been accomplished, the patient was placed back into a supine position, he was extubated and taken back to the recovery room in stable condition. Sponge, needle and instrument counts were reported to be correct. MD YARIEL Talavera/STAN /9:53 PM /9:57 PM
[2017-03-10 00:09] VITALS: BP 121/80; PULSE 91; RESP 18; TEMP 98.3; O2SAT 93
[2017-03-10 08:00] VITALS: BP 126/89; PULSE 83; RESP 18; TEMP 98; O2SAT 98
[2017-03-10] MEDS: DOCUSATE SODIUM 100 MG CAP PO SCH ×3 (09:00→21:14)
[2017-03-10] MEDS: SENNOSIDES 8.6 MG TAB PO SCH (09:00)
[2017-03-10] MEDS: LACTOBACILLUS ACIDOPHILUS TAB PO SCH ×3 (09:13→16:48)
[2017-03-10] MEDS: ASPIRIN EC 81 MG TABEC PO SCH (09:13)
[2017-03-10] MEDS: HYDROCHLOROTHIAZIDE 12.5 MG CAP PO SCH (09:13)
[2017-03-10] MEDS: LISINOPRIL 20 MG TAB PO SCH (09:14)
[2017-03-10] MEDS: SODIUM CHLORIDE 0.9% FLUSH 10 ML FLUSH IV FLUSH SCH ×2 (09:14→21:14)
[2017-03-10] MEDS: MICONAZOLE NITRATE 2% CREAM 15 GM TOPICAL SCH ×2 (09:15→21:14)
[2017-03-10] MEDS: ENOXAPARIN SODIUM 40 MG/0.4 ML SYRINGE SQ SCH (11:20)
[2017-03-10 12:00] VITALS: BP 134/87; PULSE 86; RESP 18; TEMP 98.3; O2SAT 98
[2017-03-10] MEDS: VANCOMYCIN INJ 2,500 MG in SODIUM CHLORID 0.9% 500 ML INJ 500 ML IV SCH (13:14)
--- NOTE | 2017-03-10 14:35 | HHI.PR ---
Subjective Remarks patient denies fevers/chills states pain in right lower extremity is improved vital signs are stable Objective Vitals Vital Signs Date Time Temp Pulse Resp B/P Pulse Ox O2 Delivery O2 Flow Rate FiO2 03/10/17 12:00 98.3 86 18 134/87 98 03/10/17 08:00 98.0 83 18 126/89 98 03/10/17 05:36 03/10/17 00:09 98.3 91 18 121/80 93 03/09/17 20:09 99.3 107 20 145/70 93 03/09/17 16:00 98.0 78 17 134/76 96 I/O 03/09/17 03/09/17 03/09/17 03/10/17 03/10/17 03/10/17 07:00 15:00 23:00 07:00 15:00 23:00 Intake Total 740 ml Output Total 650 ml 944 ml 400 ml 800 ml Balance 90 ml -944 ml -400 ml -800 ml Intake Oral 240 ml IV Total 500 ml Output Urine Total 650 ml 944 ml 400 ml 800 ml # Voids 1 1 # Bowel Movements 1 1 Result Diagram: 03/08/17 0550 03/09/17 0523 Imaging Last Impressions Lower Extremity Ultrasound 03/04/17 0000 Signed Impressions: Service Date/Time: Saturday, March 04, 2017 11:54 - CONCLUSION: 4 x 3 x 1 cm complex fluid collection in the superficial soft tissues of the right calf suggesting abscess in the proper clinical setting. Sy Finch MD Lower Extremity CT 03/02/17 0000 Signed Impressions: Service Date/Time: Thursday, March 02, 2017 15:20 - CONCLUSION: 1. Marked superficial cellulitis without defined deep space abscess or osteomyelitis. 2. Cellulitis does involve the anterior surface of the tibia but there is no periosteal reaction to suggest an osteomyelitis at this point. 3. Extensive venous varicosity evident. Noe Burks MD FACR Objective Remarks GENERAL: Awake and alert, in no acute distress. SKIN: Wound vac in place, right lower extremity shows necrotic tissue with less induration and erythema. HEAD: Atraumatic. Normocephalic. EYES: Pupils equal and round. No scleral icterus. ENT: Mucous membranes pink and moist. NECK: Trachea midline. No JVD. CARDIOVASCULAR: Regular rate and rhythm. No murmur appreciated. RESPIRATORY: No accessory muscle use. Clear to auscultation. Breath sounds equal bilaterally. GASTROINTESTINAL: Abdomen soft, non-tender, nondistended. Hepatic and splenic margins not palpable. MUSCULOSKELETAL: No obvious deformities. No clubbing. No cyanosis. 2+ edema of the right lower extremity. Wound vac in place. NEUROLOGICAL: Awake and alert. No obvious cranial nerve deficits. Motor grossly within normal limits. Normal speech. PSYCHIATRIC: Appropriate mood and affect; insight and judgment normal. Procedures I&D 03/05/17. sp I&D and wound Vac replacement on 03/09/17 Medications and IVs Current Medications Medications (Trade) Dose Ordered Sig/Chandan Route Start Time Stop Time Status Last Admin (Ecotrin Ec) 81 mg DAILY PO 03/03/17 09:00 03/10/17 09:13 (Microzide) 12.5 mg DAILY PO 03/03/17 09:00 03/10/17 09:13 (Prinivil) 40 mg DAILY PO 03/03/17 09:00 03/10/17 09:14 (Pravachol) 80 mg HS PO 03/02/17 21:00 03/09/17 20:12 (NS Flush) 2 ml UNSCH PRN IV FLUSH 03/02/17 17:15 (NS Flush) 2 ml BID IV FLUSH 03/02/17 21:00 03/10/17 09:14 (Tylenol) 650 mg Q4H PRN PO 03/02/17 17:15 03/03/17 07:30 (Colace) 100 mg Q12H PO 03/02/17 21:00 03/09/17 20:12 (Ambien) 5 mg HS PRN PO 03/02/17 17:15 03/09/17 20:12 (Narcan Inj) 0.4 mg UNSCH PRN IV 03/02/17 17:15 (Vasotec Inj) 1.25 mg Q6H PRN IV PUSH 03/02/17 18:00 Lactobacillus Acidophilus 1 tab 1 tab TID PO 03/03/17 13:00 03/10/17 13:14 (Vancomycin Consult Pharmacy) 0 ml @ 0 mls/hr UNSCH OTHER 03/04/17 12:00 Acetaminophen/ Hydrocodone Bitart 1 tab 1 tab Q4H PRN PO 03/04/17 10:45 5/4/17 06:17 (Lr 1000 ml Inj) 1,000 ml @ 30 mls/hr Q24H PRN IV 03/05/17 02:30 03/05/17 10:30 (Lovenox Inj) 40 mg Q24H SQ 03/06/17 12:00 03/10/17 11:20 (Dilaudid Pf Inj) 2 mg Q4H PRN IV PUSH 03/05/17 12:15 03/08/17 21:17 (Atarax) 25 mg Q6H PRN PO 03/06/17 10:45 03/09/17 01:28 Sennosides 17.2 mg 17.2 mg DAILY PO 03/06/17 11:00 03/07/17 09:42 (Vancomycin Inj/ NS 500 ml Inj) 525 ml @ 250 mls/hr Q18H IV 03/06/17 20:00 03/10/17 13:14 ([place] 10-325 Mg) 1 tab Q4H PRN PO 03/08/17 08:30 03/09/17 06:45 (Micatin 2% Cream) 1 applic Q12HR TOPICAL 03/09/17 15:00 03/10/17 09:15 Urinary Catheter: No A/P Problem List: (1) Abscess of right lower extremity ICD Code: L02.415 Status: Acute Plan: Failed outpatient treatment for Solaris with Bactrim. CT of the leg as described above. Wound culture grew MRSA Ultrasound of the right lower extremity showed a 431 cm complex fluid collection in the superficial soft tissues in the right calf. Surgery consulted. Patient status post I&D with wound VAC placement on . Blood cultures negative 5. Continue IV vancomycin for now. Staph aureus is sensitive to several oral antibiotics. Pharmacy helping with Vancomycin dose. Will consult infectious disease if not previously done. (2) Cellulitis ICD Code: L03.90 Status: Acute Plan: As above. (3) Hollie rash of groin ICD Code: B37.89 Status: Acute Plan: Continue antifungal cream - rash improving (4) HTN (hypertension) ICD Code: I10 Status: Acute Plan: stable on lisinopril Assessment and Plan DVT prophylaxis: Lovenox SQ. Discharge Planning Pending surgery clearance and ID consultation Problem Qualifiers (1) Cellulitis: Qualified Code: L03.115 - Cellulitis of right lower extremity (2) HTN (hypertension): Qualified Code: I10 - Essential hypertension Lefty Blake MD March 10, 2017 14:35
[2017-03-10 16:00] VITALS: BP 130/80; PULSE 88; RESP 18; TEMP 98.3; O2SAT 98
[2017-03-10 20:47] VITALS: BP 144/93; PULSE 95; RESP 20; TEMP 99.1; O2SAT 98
[2017-03-10] MEDS: PRAVASTATIN SOD 40 MG TAB PO SCH (21:14)
[2017-03-10] MEDS: ZOLPIDEM TARTRATE 5 MG TAB PO PRN (21:14)
[2017-03-10] MEDS: HYDROmorphone HCL PF 2 MG/ML VIAL IV PUSH PRN (21:16)
--- NOTE | 2017-03-10 22:21 | PD.CONS ---
History of Present Illness Service ID CONSULT DR ARDON Consult Requested By Reason for Consult MRSA ABSCESS + ABX REC Primary Care Physician Sharmin Stroud DO Diagnoses: (1) Cellulitis (2) Abscess of right lower extremity History of Present Illness 56 Y/O MALE ADM WITH REDNESS AND SWELLING TO HIS RIGHT CALF WHICH HE STATES STARTED A BUG BITE A WEEK AGO SUNDAY. HE CAME IN DUE TO THE INCREASED REDNESS AND PAIN. HE WAS FOUND TO HAVE ABSCESS AND HAD I&D. CULTURES + MRSA. HE IS ON VANCOMYCIN. HE HAS A WOUND VAC. ID CONSULTED TO HELP WITH ABX. HE IS NOT DM. Review of Systems Constitutional: DENIES: Fever Eyes: DENIES: Eye pain Ears, nose, mouth, throat: DENIES: Oral lesions Cardiovascular: DENIES: Dyspnea on Exertion Gastrointestinal: DENIES: Constipation Genitourinary: DENIES: Urinary incontinence Musculoskeletal: DENIES: Joint Swelling Integumentary: COMPLAINS OF: Abnormal pigmentation (RIGHT CALF WITH PAIN AND SWELLING + WOUND VAC) Hematologic/lymphatic: DENIES: Bruising Immunologic/allergic: DENIES: Eczema Neurologic: DENIES: Abnormal gait Psychiatric: DENIES: Anxiety Past Family Social History Allergies: Coded Allergies: Penicillin (Verified Allergy, Mild, 03/02/17) *MDRO Multi-Drug Resistant Organism (Verified Adverse Reaction, Unknown, ) MRSA (leg) - 03/02/17 Past Medical History Past Medical History Arthritis: Yes (KNEES) Cardiovascular Problems: Yes Diabetes: No Glaucoma: Yes Hypertension: Yes Influenza Vaccination: Yes Past Surgical History Past Surgical History Other Surgery: Yes (LASIK EYE SURGERY) Reported Medications Allergies-Medications (Allergen,Severity, Reaction): Coded Allergies: Penicillin (Verified Allergy, Mild, 03/02/17) Reported Meds & Prescriptions Reported Meds & Active Scripts Active Reported Bactrim (Sulfamethoxazole-Trimethoprim) 400-80 Mg Tab 1 Tab PO BID Hydrochlorothiazide 12.5 Mg Tab 12.5 Mg PO DAILY Simvastatin 40 Mg Tab 40 Mg PO HS Lisinopril 40 Mg Tab 40 Mg PO DAILY Aspirin 81 Mg Tabdr 81 Mg PO DAILY Active Ordered Medications VANCOMYCIN Family History NO DIABETES, NO HEART DISEASE, NO CANCERS Social History Social History Alcohol Use: Yes (RARELY) Tobacco Use: No Substance Use: No Physical Exam Vital Signs Vital Signs Date Time Temp Pulse Resp B/P Pulse Ox O2 Delivery O2 Flow Rate FiO2 5/6/17 20:47 99.1 95 20 144/93 98 03/10/17 16:00 98.3 88 18 130/80 98 03/10/17 12:00 98.3 86 18 134/87 98 03/10/17 08:00 98.0 83 18 126/89 98 03/10/17 05:36 03/10/17 00:09 98.3 91 18 121/80 93 Physical Exam GENERAL: This is a OBESE MORBID patient, in no apparent distress. SKIN: No rashes, ecchymoses or lesions. Cool and dry. he does have a wound to right posterior calf with wound vac. cellulitis to the right leg HEAD: Atraumatic. Normocephalic. No temporal or scalp tenderness. EYES: Pupils equal round and reactive. Extraocular motions intact. No scleral icterus. No injection or drainage. ENT: Nose without bleeding, purulent drainage or septal hematoma. Throat without erythema, tonsillar hypertrophy or exudate. Uvula midline. Airway patent. NECK: Trachea midline. No JVD or lymphadenopathy. Supple, nontender, no meningeal signs. CARDIOVASCULAR: Regular rate and rhythm without murmurs, gallops, or rubs. RESPIRATORY: Clear to auscultation. Breath sounds equal bilaterally. No wheezes , rales, or rhonchi. GASTROINTESTINAL: Abdomen soft, non-tender, nondistended. No hepato-splenomegaly , or palpable masses. No guarding. MUSCULOSKELETAL: Extremities without clubbing, cyanosis, or edema. . Negative Homans sign bilaterally. + wound vac right leg NEUROLOGICAL: Awake and alert. Cranial nerves II through XII intact. Motor and sensory grossly within normal limits. Five out of 5 muscle strength in all muscle groups. Normal speech. Result Diagram: 03/08/17 0550 03/09/17 0523 Assessment and Plan Problem List: (1) Cellulitis Status: Acute Plan: still a lot of redness continue vanco for now will monitor may need IV on dc told by surgery sunday he will be ready for dc hold picc for now (2) MRSA (methicillin resistant staph aureus) culture positive Status: Acute (3) Abscess of right lower extremity Status: Acute Plan: s/p i&d no with wound vac (4) HTN (hypertension) Status: Acute Problem Qualifiers (1) Cellulitis: Qualified Code: L03.115 - Cellulitis of right lower extremity (2) HTN (hypertension): Qualified Code: I10 - Essential hypertension Beverley Chávez March 10, 2017 22:21
[2017-03-11 00:42] VITALS: BP 131/73; PULSE 79; RESP 18; TEMP 98.1; O2SAT 99
[2017-03-11] MEDS: HYDROmorphone HCL PF 2 MG/ML VIAL IV PUSH PRN ×4 (01:40→21:50)
[2017-03-11 08:00] VITALS: BP 95/59; PULSE 75; RESP 18; TEMP 96.4; O2SAT 98
[2017-03-11 08:02] LABS: AUTOMATED NEUTROPHIL # 8.3 TH/MM3 (1.8-7.7); BASOPHIL # 0.2 TH/MM3 (0-0.2); EOSINOPHIL # 0.3 TH/MM3 (0-0.4); EOSINOPHIL % 2.2 % (0.0-4.0); HEMATOCRIT 39.7 % (39.0-51.0); LYMPH % 16.9 % (9.0-44.0); LYMPHOCYTE # 1.9 TH/MM3 (1.0-4.8); MEAN CORPUSCULAR HEMOGLOBIN 28.8 PG (27.0-34.0); MEAN CORPUSCULAR HGB CONC 32.7 % (32.0-36.0); MONO % 6.6 % (0.0-8.0); NEUT % 72.3 % (16.0-70.0); PLATELET COUNT 222 TH/MM3 (150-450); RED BLOOD COUNT 4.51 MIL/MM3 (4.50-5.90); RED CELL DISTRIBUTION WIDTH 12.7 % (11.6-17.2); WHITE BLOOD COUNT 11.5 TH/MM3 (4.0-11.0)
[2017-03-11 08:11] LABS: CHLORIDE 105 MEQ/L (98-107); POTASSIUM 3.6 MEQ/L (3.5-5.1); SODIUM (NA) 141 MEQ/L (136-145)
[2017-03-11 08:19] LABS: ANION GAP 9 MEQ/L (5-15); BICARBONATE 27.3 MEQ/L (21.0-32.0); BLOOD UREA NITROGEN 18 MG/DL (7-18)
[2017-03-11 08:22] LABS: ALT (GPT) 26 U/L (12-78); AST (GOT) 23 U/L (15-37); GLOMERULAR FILTRATION RATE 113 ML/MIN (>89)
[2017-03-11 08:23] LABS: TOTAL BILIRUBIN ADULT 0.7 MG/DL (0.2-1.0)
[2017-03-11 08:24] LABS: ALKALINE PHOSPHATASE 78 U/L (45-117)
[2017-03-11 08:26] LABS: HEMO FLAGS DIFF FINAL
--- NOTE | 2017-03-11 08:27 | HHI.IDPN ---
Subjective Subjective Remarks ID FU DR ARDON FEELS BETTER HAS NOLAN THIS MORNING Antibiotics VANCOMYCIN Allergies: Coded Allergies: Penicillin (Verified Allergy, Mild, 03/02/17) *MDRO Multi-Drug Resistant Organism (Verified Adverse Reaction, Unknown, ) MRSA (leg) - 03/02/17 Review of Systems Constitutional Constitutional: Fatigue Constitutional Remarks C/O HEADACHE NO CHILLS NO NUCHAL RIGIDINESS NO FEVER CHILL S NO NVD NO ABD PAIN PAIN TO RLE + Objective . Vital Signs Date Time Temp Pulse Resp B/P Pulse Ox O2 Delivery O2 Flow Rate FiO2 03/11/17 00:42 98.1 79 18 131/73 99 03/10/17 20:47 99.1 95 20 144/93 98 03/10/17 16:00 98.3 88 18 130/80 98 03/10/17 12:00 98.3 86 18 134/87 98 03/10/17 03/10/17 03/11/17 15:00 23:00 07:00 Intake Total 100 ml 840 ml 480 ml Output Total 800 ml 1000 ml Balance -700 ml -160 ml 480 ml Intake Oral 100 ml 840 ml 480 ml Output Urine Total 800 ml 1000 ml # Voids 1 3 # Bowel Movements 1 . Laboratory Tests Test 03/11/17 07:00 Sodium Level 141 MEQ/L Potassium Level 3.6 MEQ/L Chloride Level 105 MEQ/L Carbon Dioxide Level 27.3 MEQ/L Anion Gap 9 MEQ/L Blood Urea Nitrogen 18 MG/DL Creatinine 0.72 MG/DL Estimat Glomerular Filtration 113 ML/MIN Rate Random Glucose 99 MG/DL Calcium Level 8.4 MG/DL Aspartate Amino Transf 23 U/L (AST/SGOT) Alanine Aminotransferase 26 U/L (ALT/SGPT) Albumin 2.3 GM/DL Physical Exam SLEEPY OX 3 PERRL NS CHEST CTA NO C/R/R/W CARDAIC : RRR ABD SOFT EXT RLE WOUD VAC CELLULITIS IS BETTER THIS AM Assessment & Plan Diagnosis: (1) Cellulitis Plan: REDNESS IS BETTER MAY NEED VANCO X 7 DAYS WILL ORDER PICC LINE TODAY KNOWLEDGE ABOUT WBC 11.2 TODAY FURTHER REC TO FOLLOW (2) MRSA (methicillin resistant staph aureus) culture positive (3) Abscess of right lower extremity Plan: s/p i&d no with wound vac (4) HTN (hypertension) Problem Qualifiers (1) Cellulitis: Qualified Code: L03.115 - Cellulitis of right lower extremity (2) HTN (hypertension): Qualified Code: I10 - Essential hypertension Beverley Chávez March 11, 2017 08:27
[2017-03-11] MEDS: VANCOMYCIN INJ 2,500 MG in SODIUM CHLORID 0.9% 500 ML INJ 500 ML IV SCH ×2 (08:43→12:21)
[2017-03-11] MEDS: LACTOBACILLUS ACIDOPHILUS TAB PO SCH ×3 (08:44→17:25)
[2017-03-11] MEDS: SODIUM CHLORIDE 0.9% FLUSH 10 ML FLUSH IV FLUSH SCH ×2 (08:44→21:00)
[2017-03-11] MEDS: ASPIRIN EC 81 MG TABEC PO SCH (08:45)
[2017-03-11] MEDS: DOCUSATE SODIUM 100 MG CAP PO SCH ×2 (08:45→21:00)
[2017-03-11] MEDS: MICONAZOLE NITRATE 2% CREAM 15 GM TOPICAL SCH ×2 (08:46→21:00)
[2017-03-11] MEDS: SENNOSIDES 8.6 MG TAB PO SCH (08:46)
[2017-03-11] MEDS ORDERED: HYDROmorphone HCL PF 2 MG/ML VIAL IV ONE (11:15)
--- NOTE | 2017-03-11 11:42 | HHI.PR ---
Subjective Remarks denies cp/sob denies fevers/chills pain controlled vitals stable Objective Vitals Vital Signs Date Time Temp Pulse Resp B/P Pulse Ox O2 Delivery O2 Flow Rate FiO2 03/11/17 09:26 18 03/11/17 08:00 96.4 75 18 95/59 98 03/11/17 00:42 98.1 79 18 131/73 99 03/10/17 20:47 99.1 95 20 144/93 98 03/10/17 16:00 98.3 88 18 130/80 98 03/10/17 12:00 98.3 86 18 134/87 98 I/O 03/10/17 03/10/17 03/10/17 03/11/17 03/11/17 03/11/17 07:00 15:00 23:00 07:00 15:00 23:00 Intake Total 100 ml 840 ml 480 ml Output Total 800 ml 1000 ml Balance -700 ml -160 ml 480 ml Intake Oral 100 ml 840 ml 480 ml Output Urine Total 800 ml 1000 ml # Voids 1 3 # Bowel Movements 1 Result Diagram: 03/11/17 0700 03/11/17 0700 Imaging Last Impressions Lower Extremity Ultrasound 03/04/17 0000 Signed Impressions: Service Date/Time: Saturday, March 04, 2017 11:54 - CONCLUSION: 4 x 3 x 1 cm complex fluid collection in the superficial soft tissues of the right calf suggesting abscess in the proper clinical setting. Sy Finch MD Lower Extremity CT 03/02/17 0000 Signed Impressions: Service Date/Time: Thursday, March 02, 2017 15:20 - CONCLUSION: 1. Marked superficial cellulitis without defined deep space abscess or osteomyelitis. 2. Cellulitis does involve the anterior surface of the tibia but there is no periosteal reaction to suggest an osteomyelitis at this point. 3. Extensive venous varicosity evident. Noe Burks MD FACR Objective Remarks GENERAL: Awake and alert, in no acute distress. SKIN: Wound vac in place, right lower extremity shows necrotic tissue with less induration and erythema. HEAD: Atraumatic. Normocephalic. EYES: Pupils equal and round. No scleral icterus. ENT: Mucous membranes pink and moist. NECK: Trachea midline. No JVD. CARDIOVASCULAR: Regular rate and rhythm. No murmur appreciated. RESPIRATORY: No accessory muscle use. Clear to auscultation. Breath sounds equal bilaterally. GASTROINTESTINAL: Abdomen soft, non-tender, nondistended. Hepatic and splenic margins not palpable. MUSCULOSKELETAL: No obvious deformities. No clubbing. No cyanosis. 2+ edema of the right lower extremity. Wound vac in place. NEUROLOGICAL: Awake and alert. No obvious cranial nerve deficits. Motor grossly within normal limits. Normal speech. PSYCHIATRIC: Appropriate mood and affect; insight and judgment normal. Procedures I&D 03/05/17. sp I&D and wound Vac replacement on 03/09/17 Medications and IVs Current Medications Medications (Trade) Dose Ordered Sig/Chandan Route Start Time Stop Time Status Last Admin (Ecotrin Ec) 81 mg DAILY PO 03/03/17 09:00 03/11/17 08:45 (Microzide) 12.5 mg DAILY PO 03/03/17 09:00 03/10/17 09:13 (Prinivil) 40 mg DAILY PO 03/03/17 09:00 03/10/17 09:14 (Pravachol) 80 mg HS PO 03/02/17 21:00 03/10/17 21:14 (NS Flush) 2 ml UNSCH PRN IV FLUSH 03/02/17 17:15 (NS Flush) 2 ml BID IV FLUSH 03/02/17 21:00 03/11/17 08:44 (Tylenol) 650 mg Q4H PRN PO 03/02/17 17:15 03/03/17 07:30 (Colace) 100 mg Q12H PO 03/02/17 21:00 03/09/17 20:12 (Ambien) 5 mg HS PRN PO 03/02/17 17:15 03/10/17 21:14 (Narcan Inj) 0.4 mg UNSCH PRN IV 03/02/17 17:15 (Vasotec Inj) 1.25 mg Q6H PRN IV PUSH 03/02/17 18:00 Lactobacillus Acidophilus 1 tab 1 tab TID PO 03/03/17 13:00 03/11/17 08:44 (Vancomycin Consult Pharmacy) 0 ml @ 0 mls/hr UNSCH OTHER 03/04/17 12:00 Acetaminophen/ Hydrocodone Bitart 1 tab 1 tab Q4H PRN PO 03/04/17 10:45 03/08/17 06:17 (Lr 1000 ml Inj) 1,000 ml @ 30 mls/hr Q24H PRN IV 03/05/17 02:30 03/05/17 10:30 (Lovenox Inj) 40 mg Q24H SQ 03/06/17 12:00 03/10/17 11:20 (Dilaudid Pf Inj) 2 mg Q4H PRN IV PUSH 03/05/17 12:15 03/11/17 08:56 (Atarax) 25 mg Q6H PRN PO 03/06/17 10:45 03/09/17 01:28 Sennosides 17.2 mg 17.2 mg DAILY PO 03/06/17 11:00 03/07/17 09:42 (Vancomycin Inj/ NS 500 ml Inj) 525 ml @ 250 mls/hr Q18H IV 03/06/17 20:00 03/16/17 19:59 03/10/17 13:14 ([place] 10-325 Mg) 1 tab Q4H PRN PO 03/08/17 08:30 03/09/17 06:45 (Micatin 2% Cream) 1 applic Q12HR TOPICAL 03/09/17 15:00 03/11/17 08:46 Miscellaneous Information SPECIFIC LAB TO BE DRAWN:VANCO TROUGH DATE... ONCE ONCE .XX 03/12/17 07:45 03/12/17 07:46 Urinary Catheter: No Vascular Central Line Catheter: No A/P Problem List: (1) Abscess of right lower extremity ICD Code: L02.415 Status: Acute (2) Cellulitis ICD Code: L03.90 Status: Acute (3) Hollie rash of groin ICD Code: B37.89 Status: Acute (4) HTN (hypertension) ICD Code: I10 Status: Acute Assessment and Plan (1) Abscess of right lower extremity Plan: Failed outpatient treatment for Solaris with Bactrim. CT of the leg as described above. Wound culture grew MRSA Ultrasound of the right lower extremity showed a 431 cm complex fluid collection in the superficial soft tissues in the right calf. Surgery consulted. Patient status post I&D with wound VAC placement on . Blood cultures negative 5. Continue IV vancomycin for now. Staph aureus is sensitive to several oral antibiotics. Pharmacy helping with Vancomycin dose. ID consulted appreciate recommendations - Continue IV Vancomycin, may need IV Vancomycin as outpatient. Picc line in am as per ID. (2) Cellulitis Plan: As above. (3) Hollie rash of groin Plan: Continue antifungal cream - rash improving (4) HTN (hypertension) Plan: stable on lisinopril DVT prophylaxis: Lovenox SQ. Discharge Planning Pending surgery clearance and ID consultation Problem Qualifiers (1) Cellulitis: Qualified Code: L03.115 - Cellulitis of right lower extremity (2) HTN (hypertension): Qualified Code: I10 - Essential hypertension Lefty Blake MD March 11, 2017 11:42
--- NOTE | 2017-03-11 11:52 | HHI.PR ---
Subjective Subjective Notes Patient still painful, but improving Objective Vitals/I&O Vital Signs Date Time Temp Pulse Resp B/P Pulse Ox O2 Delivery O2 Flow Rate FiO2 03/11/17 09:26 18 03/11/17 08:00 96.4 75 95/59 98 03/08/17 15:35 Room Air 03/07/17 19:45 21 Labs Laboratory Tests Test 03/11/17 07:00 White Blood Count 11.5 Red Blood Count 4.51 Hemoglobin 13.0 Hematocrit 39.7 Mean Corpuscular Volume 88.0 Mean Corpuscular Hemoglobin 28.8 Mean Corpuscular Hemoglobin 32.7 Concent Red Cell Distribution Width 12.7 Platelet Count 222 Mean Platelet Volume 7.7 Neutrophils (%) (Auto) 72.3 Lymphocytes (%) (Auto) 16.9 Monocytes (%) (Auto) 6.6 Eosinophils (%) (Auto) 2.2 Basophils (%) (Auto) 2.0 Neutrophils # (Auto) 8.3 Lymphocytes # (Auto) 1.9 Monocytes # (Auto) 0.8 Eosinophils # (Auto) 0.3 Basophils # (Auto) 0.2 CBC Comment DIFF FINAL Differential Comment Sodium Level 141 Potassium Level 3.6 Chloride Level 105 Carbon Dioxide Level 27.3 Anion Gap 9 Blood Urea Nitrogen 18 Creatinine 0.72 Estimat Glomerular Filtration 113 Rate Random Glucose 99 Calcium Level 8.4 Total Bilirubin 0.7 Aspartate Amino Transf 23 (AST/SGOT) Alanine Aminotransferase 26 (ALT/SGPT) Alkaline Phosphatase 78 Total Protein 6.7 Albumin 2.3 Narrative Exam Lower leg minimally erythematous medial to incision Moderately tender to palpation still Lower extremity edema improved. A/P Assessment and Plan 56 year old male POD #6/3 I&D RIGHT calf with Wound Vac VAC D/C'd at bedside; saline gauze applied and wound re-dressed All tissue granulating well; no areas necrosis requiring debridement. Plan: Start BID dressing changes PICC line tomorrow Home when pain controlled with oral meds. Discussed with Cabrera Zuniga MD March 11, 2017 11:51
[2017-03-11 12:00] VITALS: BP 131/64; PULSE 85; RESP 18; TEMP 97.2; O2SAT 96
[2017-03-11] MEDS ORDERED: HYDROmorphone HCL PF 2 MG/ML VIAL IV PUSH PRN (12:00)
[2017-03-11] MEDS ORDERED: HYDROmorphone HCL PF 1 MG/ML VIAL IV PUSH ONE (12:00)
[2017-03-11] MEDS: HYDROCHLOROTHIAZIDE 12.5 MG CAP PO SCH (12:39)
[2017-03-11] MEDS: hydrOXYzine HCL 25 MG TAB PO PRN (12:40)
[2017-03-11] MEDS: LISINOPRIL 20 MG TAB PO SCH (12:40)
--- NOTE | 2017-03-11 14:12 | HHI.PR ---
Addendum to Inpatient Note Addendum Reason: Additional Documentation Additional Information Patient is complaining of a rash over his right wrist where he had tape securing the ibuprofen line. On exam there is some macules which are very itchy as per patient. This seems to be contact dermatitis to tape allergy. I will Rx hydrocortisone cream as well as Benadryl cream as needed for itching. Patient also has some similar rash in the back which could be secondary to this allergy. We'll use the same treatment as mentioned before. Patient also has a palpable cord on the right upper extremity on the anterior forearm which is slightly tender. This is likely due to superficial thrombophlebitis. Warm compresses have been prescribed. I will order a venous Doppler of the right upper extremity to confirm diagnosis and see extension. Lefty Blake MD March 11, 2017 14:12
[2017-03-11] MEDS ORDERED: HYDROCORTISONE 0.5% CREAM 30 GM TOPICAL SCH (15:00)
[2017-03-11 16:00] VITALS: BP 124/76; PULSE 80; RESP 18; TEMP 97.4; O2SAT 96
[2017-03-11] MEDS: HYDROCORTISONE 1% CREAM 30 GM TOPICAL SCH ×2 (16:29→21:51)
[2017-03-11] MEDS: ENOXAPARIN SODIUM 40 MG/0.4 ML SYRINGE SQ SCH (17:26)
--- NOTE | 2017-03-11 18:16 | RADHPO ---
EXAM DATE/TIME: 03/11/2017 16:56 [facility] COMPARISON: No previous studies available for comparison. INDICATIONS : Right arm pain. MEDICAL HISTORY : Glaucoma. HTN. Arthritis. CVA. Sleep apnea. SURGICAL HISTORY : Lasik eye surgery. ENCOUNTER: Subsequent ACUITY: 1 day PAIN SCORE: 6/10 LOCATION: Right arm. FINDINGS: There is occlusive superficial thrombus in the antecubital area involving the basilic vein at the quinn or site of IV. No deep venous thrombosis in the jugular, subclavian, axial, brachial veins. CONCLUSION: Superficial thrombus in the basilic vein. No deep thrombus. Constantino Harry MD on March 11, 2017 at 18:13 Board Certified Radiologist. This report was verified electronically.
[2017-03-11 20:00] VITALS: BP 139/80; PULSE 84; RESP 21; TEMP 98.5; O2SAT 98
[2017-03-11] MEDS: PRAVASTATIN SOD 40 MG TAB PO SCH (21:51)
[2017-03-11] MEDS: diphenhydrAMINE HCL 2%/ZINC ACETATE 0.1% CREAM 30 APPLIC/30 GM TUBE TOPICAL PRN (21:51)
[2017-03-11] MEDS: ZOLPIDEM TARTRATE 5 MG TAB PO PRN ×2 (22:09→22:30)
[2017-03-12] VITALS: BP 124/76; PULSE 98; RESP 21; TEMP 97.4; O2SAT 96
[2017-03-12] MEDS: HYDROmorphone HCL PF 2 MG/ML VIAL IV PUSH PRN ×4 (02:36→22:39)
[2017-03-12] MEDS: HYDROCORTISONE 1% CREAM 30 GM TOPICAL SCH ×3 (06:00→22:36)
[2017-03-12] MEDS: VANCOMYCIN INJ 2,500 MG in SODIUM CHLORID 0.9% 500 ML INJ 500 ML IV SCH (06:00)
[2017-03-12 08:00] VITALS: BP 113/76; PULSE 83; RESP 20; TEMP 97.3; O2SAT 98
[2017-03-12] MEDS: MICONAZOLE NITRATE 2% CREAM 15 GM TOPICAL SCH ×2 (09:00→22:36)
[2017-03-12] MEDS: SENNOSIDES 8.6 MG TAB PO SCH (09:00)
[2017-03-12] MEDS: DOCUSATE SODIUM 100 MG CAP PO SCH ×2 (09:00→21:00)
[2017-03-12] MEDS: SODIUM CHLORIDE 0.9% FLUSH 10 ML FLUSH IV FLUSH SCH ×2 (09:00→22:34)
--- NOTE | 2017-03-12 10:45 | RADHPO ---
EXAM DATE/TIME: 03/12/2017 10:35 [facility] COMPARISON: No previous studies available for comparison. INDICATIONS : PICC line placment. MEDICAL HISTORY : Hypertension. SURGICAL HISTORY : None. ENCOUNTER: Initial ACUITY: 1 day PAIN SCORE: 0/10 LOCATION: Bilateral chest FINDINGS: A single view of the chest demonstrates the lungs to be symmetrically aerated without evidence of mas s, infiltrate or effusion. A left upper extremity PICC line has been inserted and appears to be in sa tisfactory position within the superior vena cava. The cardiomediastinal contours are unremarkable. Osseous structures are intact. CONCLUSION: Left upper extremity PICC line in satisfactory position. No acute cardiopulmonary process. Oleg Huber MD on March 12, 2017 at 10:43 Board Certified Radiologist. This report was verified electronically.
[2017-03-12] MEDS: LISINOPRIL 20 MG TAB PO SCH (10:57)
[2017-03-12] MEDS: ASPIRIN EC 81 MG TABEC PO SCH (10:58)
[2017-03-12] MEDS: ACETAMINOPHEN/HYDROcodone 325 MG/10 MG TAB PO PRN ×3 (10:58→19:14)
[2017-03-12] MEDS: LACTOBACILLUS ACIDOPHILUS TAB PO SCH ×3 (10:59→17:23)
[2017-03-12] MEDS: HYDROCHLOROTHIAZIDE 12.5 MG CAP PO SCH (10:59)
[2017-03-12] MEDS ORDERED: SODIUM CHLORIDE 0.9% FLUSH 10 ML FLUSH IV FLUSH PRN (11:00)
--- NOTE | 2017-03-12 11:48 | HHI.PR ---
Subjective Remarks Patient states rash in wrist looks worst - itchy rash on back improving denies cp/sob denies fevers/chills has pain in right lower extremity Objective Vitals Vital Signs Date Time Temp Pulse Resp B/P Pulse Ox O2 Delivery O2 Flow Rate FiO2 03/12/17 08:00 97.3 83 20 113/76 98 03/12/17 00:00 97.4 98 21 124/76 96 03/11/17 20:00 98.5 84 21 139/80 98 03/11/17 17:00 18 03/11/17 16:00 97.4 80 18 124/76 96 03/11/17 12:00 97.2 85 18 131/64 96 I/O 03/11/17 03/11/17 03/11/17 03/12/17 03/12/17 03/12/17 06:59 14:59 22:59 06:59 14:59 22:59 Intake Total 480 ml 500 ml 720 ml 120 ml Output Total 550 ml 550 ml Balance 480 ml 500 ml 170 ml -430 ml Intake Oral 480 ml 720 ml 120 ml IV Total 500 ml Output Urine Total 550 ml 550 ml # Voids 3 4 # Bowel Movements 1 Result Diagram: 03/11/17 0700 03/11/17 0700 Imaging Last Impressions Chest X-Ray 03/12/17 0000 Signed Impressions: Service Date/Time: Sunday, March 12, 2017 10:35 - CONCLUSION: Left upper extremity PICC line in satisfactory position. No acute cardiopulmonary process. Oleg Huber MD Upper Extremity Ultrasound 03/11/17 0000 Signed Impressions: Service Date/Time: Saturday, March 11, 2017 16:56 - CONCLUSION: Superficial thrombus in the basilic vein. No deep thrombus. Constantino Harry MD Lower Extremity Ultrasound 03/04/17 0000 Signed Impressions: Service Date/Time: Saturday, March 04, 2017 11:54 - CONCLUSION: 4 x 3 x 1 cm complex fluid collection in the superficial soft tissues of the right calf suggesting abscess in the proper clinical setting. Sy Finch MD Lower Extremity CT 03/02/17 0000 Signed Impressions: Service Date/Time: Thursday, March 02, 2017 15:20 - CONCLUSION: 1. Marked superficial cellulitis without defined deep space abscess or osteomyelitis. 2. Cellulitis does involve the anterior surface of the tibia but there is no periosteal reaction to suggest an osteomyelitis at this point. 3. Extensive venous varicosity evident. Noe Burks MD FACR Objective Remarks GENERAL: Awake and alert, in no acute distress. SKIN: right lower extremity is tez wrapped. There is a papular erythematous itchy rash on wrist and upper back. HEAD: Atraumatic. Normocephalic. EYES: Pupils equal and round. No scleral icterus. ENT: Mucous membranes pink and moist. NECK: Trachea midline. No JVD. CARDIOVASCULAR: Regular rate and rhythm. No murmur appreciated. RESPIRATORY: No accessory muscle use. Clear to auscultation. Breath sounds equal bilaterally. GASTROINTESTINAL: Abdomen soft, non-tender, nondistended. Hepatic and splenic margins not palpable. MUSCULOSKELETAL: No obvious deformities. No clubbing. No cyanosis. 2+ edema of the right lower extremity. Tez wrap in place on right lower extremity which seems wet with serous fluid. NEUROLOGICAL: Awake and alert. No obvious cranial nerve deficits. Motor grossly within normal limits. Normal speech. PSYCHIATRIC: Appropriate mood and affect; insight and judgment normal. Procedures I&D 03/05/17. sp I&D and wound Vac replacement on 03/09/17 Medications and IVs Current Medications Medications (Trade) Dose Ordered Sig/Chandan Route Start Time Stop Time Status Last Admin (Ecotrin Ec) 81 mg DAILY PO 03/03/17 09:00 03/12/17 10:58 (Microzide) 12.5 mg DAILY PO 03/03/17 09:00 03/12/17 10:59 (Prinivil) 40 mg DAILY PO 03/03/17 09:00 03/12/17 10:57 (Pravachol) 80 mg HS PO 03/02/17 21:00 03/11/17 21:51 (NS Flush) 2 ml UNSCH PRN IV FLUSH 03/02/17 17:15 03/11/17 16:31 (NS Flush) 2 ml BID IV FLUSH 03/02/17 21:00 03/12/17 09:00 (Tylenol) 650 mg Q4H PRN PO 03/02/17 17:15 03/03/17 07:30 (Colace) 100 mg Q12H PO 03/02/17 21:00 03/09/17 20:12 (Ambien) 5 mg HS PRN PO 03/02/17 17:15 03/11/17 22:30 (Narcan Inj) 0.4 mg UNSCH PRN IV 03/02/17 17:15 (Vasotec Inj) 1.25 mg Q6H PRN IV PUSH 03/02/17 18:00 Lactobacillus Acidophilus 1 tab 1 tab TID PO 03/03/17 13:00 03/12/17 10:59 (Vancomycin Consult Pharmacy) 0 ml @ 0 mls/hr UNSCH OTHER 03/04/17 12:00 Acetaminophen/ Hydrocodone Bitart 1 tab 1 tab Q4H PRN PO 03/04/17 10:45 03/08/17 06:17 (Lr 1000 ml Inj) 1,000 ml @ 30 mls/hr Q24H PRN IV 03/05/17 02:30 03/05/17 10:30 (Lovenox Inj) 40 mg Q24H SQ 03/06/17 12:00 03/11/17 17:26 (Dilaudid Pf Inj) 2 mg Q4H PRN IV PUSH 03/05/17 12:15 03/12/17 06:15 (Atarax) 25 mg Q6H PRN PO 03/06/17 10:45 03/11/17 12:40 (Senokot) 17.2 mg DAILY PO 03/06/17 11:00 03/07/17 09:42 ([place] 10-325 Mg) 1 tab Q4H PRN PO 03/08/17 08:30 03/12/17 10:58 (Micatin 2% Cream) 1 applic Q12HR TOPICAL 03/09/17 15:00 03/12/17 09:00 Miscellaneous Information SPECIFIC LAB TO BE DRAWN:VANCO TROUGH DATE... ONCE ONCE .XX 03/13/17 17:45 03/13/17 17:46 (Dilaudid Pf Inj) 2 mg Q4H PRN IV PUSH 03/11/17 12:00 (Benadryl 2% Cream) 1 applic TID PRN TOPICAL 03/11/17 14:15 03/11/17 21:51 Hydrocortisone 1 applic 1 applic Q8HR TOPICAL 03/11/17 15:00 03/12/17 06:00 (Vancomycin Inj/ NS 500 ml Inj) 525 ml @ 250 mls/hr Q18H IV 03/12/17 06:00 03/16/17 20:05 03/12/17 06:00 (NS Flush) See Protocol DAILY IV FLUSH 03/13/17 09:00 (NS Flush) See Protocol UNSCH PRN IV FLUSH 03/12/17 11:00 (Heparin Central Flush) See Protocol DAILY IV FLUSH 03/13/17 09:00 (Heparin Central Flush) See Protocol UNSCH PRN IV FLUSH 03/12/17 11:00 (NS Flush) UNSCH PRN IV FLUSH 03/12/17 11:00 Urinary Catheter: No Vascular Central Line Catheter: No A/P Problem List: (1) Abscess of right lower extremity ICD Code: L02.415 Status: Acute (2) Cellulitis ICD Code: L03.90 Status: Acute (3) Hollie rash of groin ICD Code: B37.89 Status: Acute (4) HTN (hypertension) ICD Code: I10 Status: Acute (5) MRSA (methicillin resistant staph aureus) culture positive ICD Code: Z22.322 Status: Acute (6) Contact dermatitis ICD Code: L25.9 Status: Acute Plan: Continue steroid and benadryl cream. 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 CT of the leg as described above. Wound culture grew MRSA Ultrasound of the right lower extremity showed a 431 cm complex fluid collection in the superficial soft tissues in the right calf. Surgery consulted. Patient status post I&D with wound VAC placement on . Blood cultures negative 5. Continue IV vancomycin for now. Staph aureus is sensitive to several oral antibiotics. Pharmacy helping with Vancomycin dose. ID consulted appreciate recommendations - Continue IV Vancomycin, may need IV Vancomycin as outpatient. Picc line placed today. Patient will be able to go home once able to tolerate dressing changes with oral medications and cleared by general surgery and ID. (2) Cellulitis Plan: As above. (3) Hollie rash of groin Plan: Continue antifungal cream - rash improving (4) HTN (hypertension) Plan: stable on lisinopril DVT prophylaxis: Lovenox SQ. Discharge Planning Pending ID and surgery Clearance Problem Qualifiers (1) Cellulitis: Qualified Code: L03.115 - Cellulitis of right lower extremity (2) HTN (hypertension): Qualified Code: I10 - Essential hypertension (3) Contact dermatitis: Qualified Code: L23.1 - Allergic contact dermatitis due to adhesives Lefty Blake MD March 12, 2017 11:48
[2017-03-12 12:00] VITALS: BP 137/94; PULSE 106; RESP 20; TEMP 97; O2SAT 97
[2017-03-12 16:00] VITALS: BP 126/78; PULSE 107; RESP 20; TEMP 97.4; O2SAT 98
[2017-03-12] MEDS: ENOXAPARIN SODIUM 40 MG/0.4 ML SYRINGE SQ SCH (17:27)
--- NOTE | 2017-03-12 19:22 | HHI.PR ---
Subjective Subjective Notes Resting in bed eating spaghetti Okay with dressing change if pain meds given before Objective Vitals/I&O Vital Signs Date Time Temp Pulse Resp B/P Pulse Ox O2 Delivery O2 Flow Rate FiO2 03/12/17 16:00 97.4 107 20 126/78 98 03/08/17 15:35 Room Air Cardiovascular: Regular Lungs: Clear Abdomen: Non-distended, Non-tender Extremities: Other (see below ) Narrative Exam RIGHT leg----calf --- wet to dry dressing removed; wound bed clear ---beefy red without purulent fluid A/P Assessment and Plan 56 year old male s/p I&D RIGHT calf Wound Vac placement; now with wet to dry dressings -Continue antibiotics -Pain control -PICC placed -Encouraged mobilization and OOB -Regular diet -Wet to dry dressing ----change BID and PRN Attending Note - Dr. Kumari Wound clean The exam, history, and the medical decision-making described in the above note were completed with the assistance of the mid-level provider. I reviewed and agree with the findings presented. I attest that I had a [id number] encounter with the patient on the same day, and personally performed and documented my assessment and findings in the medical record. Alien Adam March 12, 2017 19:22 Cabrera Kumari MD March 13, 2017 19:18
[2017-03-12 20:00] VITALS: BP 135/87; PULSE 105; RESP 20; TEMP 98.5; O2SAT 97
[2017-03-12] MEDS: PRAVASTATIN SOD 40 MG TAB PO SCH (22:33)
[2017-03-12] MEDS: ZOLPIDEM TARTRATE 5 MG TAB PO PRN (22:43)
[2017-03-13] VITALS: BP 136/77; PULSE 97; RESP 20; TEMP 96.7; O2SAT 95
[2017-03-13] MEDS: VANCOMYCIN INJ 2,500 MG in SODIUM CHLORID 0.9% 500 ML INJ 500 ML IV SCH ×2 (00:24→17:18)
[2017-03-13] MEDS: ACETAMINOPHEN/HYDROcodone 325 MG/10 MG TAB PO PRN ×4 (02:56→21:23)
[2017-03-13] MEDS: HYDROCORTISONE 1% CREAM 30 GM TOPICAL SCH ×3 (05:47→21:25)
[2017-03-13 08:00] VITALS: BP 132/60; PULSE 83; RESP 20; TEMP 97.8; O2SAT 96
--- NOTE | 2017-03-13 08:19 | HHI.IDPN ---
Subjective Subjective Remarks Right leg with pain - during dressing change No fevers Antibiotics VANCOMYCIN Lines Left arm PICC line Past Medical History Arthritis, HTN Allergies: Coded Allergies: Penicillin (Verified Allergy, Mild, 03/02/17) *MDRO Multi-Drug Resistant Organism (Verified Adverse Reaction, Unknown, ) MRSA (leg) - 03/02/17 Review of Systems Constitutional Constitutional Remarks No fever, chills GI/Abdomen GI/Abdomen Remarks No nausea, vomiting, diarrhea Objective . Vital Signs Date Time Temp Pulse Resp B/P Pulse Ox O2 Delivery O2 Flow Rate FiO2 03/13/17 00:00 96.7 97 20 136/77 95 03/12/17 20:00 98.5 105 20 135/87 97 03/12/17 16:00 97.4 107 20 126/78 98 03/12/17 12:00 97.0 106 20 137/94 97 03/12/17 03/12/17 03/13/17 15:00 23:00 07:00 Intake Total 950 ml 240 ml 780 ml Output Total 1050 ml 400 ml Balance -100 ml -160 ml 780 ml Intake Oral 950 ml 240 ml 240 ml IV Total 540 ml Output Urine Total 1050 ml 400 ml Stool Total 0 ml # Voids 2 # Bowel Movements 0 0 . Laboratory Tests Test 03/13/17 05:47 Creatinine 0.75 MG/DL Estimat Glomerular Filtration 108 ML/MIN Rate Physical Exam Alert, Oriented x 3 No pallor, icterus Chest Clear Heart: S1S2 kami; Abdomen: Soft bowel sounds present Rt leg Still warm, indurated Dressing with drainage Assessment & Plan Diagnosis: (1) Abscess of right lower extremity Plan: S/p drainage Continue IV Vancomycin another 5 days Follow up as outpatient (2) MRSA (methicillin resistant staph aureus) culture positive Plan: Blood cultures negative Flavia Bryan MD March 13, 2017 08:19
[2017-03-13] MEDS: MICONAZOLE NITRATE 2% CREAM 15 GM TOPICAL SCH ×2 (09:00→21:00)
[2017-03-13] MEDS: SENNOSIDES 8.6 MG TAB PO SCH (09:00)
[2017-03-13] MEDS: DOCUSATE SODIUM 100 MG CAP PO SCH ×2 (09:00→21:00)
[2017-03-13] MEDS: LISINOPRIL 20 MG TAB PO SCH (09:51)
[2017-03-13] MEDS: LACTOBACILLUS ACIDOPHILUS TAB PO SCH ×3 (09:51→17:13)
[2017-03-13] MEDS: HYDROCHLOROTHIAZIDE 12.5 MG CAP PO SCH (09:51)
[2017-03-13] MEDS: ASPIRIN EC 81 MG TABEC PO SCH (09:54)
--- NOTE | 2017-03-13 11:42 | HHI.PR ---
Subjective Remarks Patient still c/o significant pain on right lower extremity especially with dressing change denies fevers/chills denies cp/sob rash in back has cleared states rash in wrist is improving Objective Vitals Vital Signs Date Time Temp Pulse Resp B/P Pulse Ox O2 Delivery O2 Flow Rate FiO2 03/13/17 08:00 97.8 83 20 132/60 96 03/13/17 07:00 18 03/13/17 00:00 96.7 97 20 136/77 95 03/12/17 20:00 98.5 105 20 135/87 97 03/12/17 16:00 97.4 107 20 126/78 98 03/12/17 12:00 97.0 106 20 137/94 97 I/O 03/12/17 03/12/17 03/12/17 03/13/17 03/13/17 03/13/17 07:00 15:00 23:00 07:00 15:00 23:00 Intake Total 120 ml 950 ml 240 ml 780 ml Output Total 550 ml 1050 ml 400 ml Balance -430 ml -100 ml -160 ml 780 ml Intake Oral 120 ml 950 ml 240 ml 240 ml IV Total 540 ml Output Urine Total 550 ml 1050 ml 400 ml Stool Total 0 ml # Voids 2 # Bowel Movements 0 0 Result Diagram: 03/11/17 0700 03/13/17 0547 Imaging Last Impressions Chest X-Ray 03/12/17 0000 Signed Impressions: Service Date/Time: Sunday, March 12, 2017 10:35 - CONCLUSION: Left upper extremity PICC line in satisfactory position. No acute cardiopulmonary process. Oleg Huber MD Upper Extremity Ultrasound 03/11/17 0000 Signed Impressions: Service Date/Time: Saturday, March 11, 2017 16:56 - CONCLUSION: Superficial thrombus in the basilic vein. No deep thrombus. Constantino Harry MD Lower Extremity Ultrasound 03/04/17 0000 Signed Impressions: Service Date/Time: Saturday, March 04, 2017 11:54 - CONCLUSION: 4 x 3 x 1 cm complex fluid collection in the superficial soft tissues of the right calf suggesting abscess in the proper clinical setting. Sy Finch MD Lower Extremity CT 03/02/17 0000 Signed Impressions: Service Date/Time: Thursday, March 02, 2017 15:20 - CONCLUSION: 1. Marked superficial cellulitis without defined deep space abscess or osteomyelitis. 2. Cellulitis does involve the anterior surface of the tibia but there is no periosteal reaction to suggest an osteomyelitis at this point. 3. Extensive venous varicosity evident. Noe Burks MD FACR Objective Remarks GENERAL: Awake and alert, in no acute distress. SKIN: right lower extremity is tez wrapped. upper back rash cleared. Wrist papular rash improving. HEAD: Atraumatic. Normocephalic. EYES: Pupils equal and round. No scleral icterus. ENT: Mucous membranes pink and moist. NECK: Trachea midline. No JVD. CARDIOVASCULAR: Regular rate and rhythm. No murmur appreciated. RESPIRATORY: No accessory muscle use. Clear to auscultation. Breath sounds equal bilaterally. GASTROINTESTINAL: Abdomen soft, non-tender, nondistended. Hepatic and splenic margins not palpable. MUSCULOSKELETAL: No obvious deformities. No clubbing. No cyanosis. 2+ edema of the right lower extremity. Tez wrap in place on right lower extremity which seems wet with serous fluid. NEUROLOGICAL: Awake and alert. No obvious cranial nerve deficits. Motor grossly within normal limits. Normal speech. PSYCHIATRIC: Appropriate mood and affect; insight and judgment normal. Procedures I&D 03/05/17. sp I&D and wound Vac replacement on 03/09/17 Medications and IVs Current Medications Medications (Trade) Dose Ordered Sig/Chandan Route Start Time Stop Time Status Last Admin (Ecotrin Ec) 81 mg DAILY PO 03/03/17 09:00 03/13/17 09:54 (Microzide) 12.5 mg DAILY PO 03/03/17 09:00 03/13/17 09:51 (Prinivil) 40 mg DAILY PO 03/03/17 09:00 03/13/17 09:51 (Pravachol) 80 mg HS PO 03/02/17 21:00 03/12/17 22:33 (NS Flush) 2 ml UNSCH PRN IV FLUSH 03/02/17 17:03/11/17 16:31 (NS Flush) 2 ml BID IV FLUSH 03/02/17 21:00 03/12/17 22:34 (Tylenol) 650 mg Q4H PRN PO 03/02/17 17:15 03/03/17 07:30 (Colace) 100 mg Q12H PO 03/02/17 21:00 03/09/17 20:12 (Ambien) 5 mg HS PRN PO 03/02/17 17:15 03/12/17 22:43 (Narcan Inj) 0.4 mg UNSCH PRN IV 03/02/17 17:15 (Vasotec Inj) 1.25 mg Q6H PRN IV PUSH 03/02/17 18:00 Lactobacillus Acidophilus 1 tab 1 tab TID PO 03/03/17 13:00 03/13/17 09:51 (Vancomycin Consult Pharmacy) 0 ml @ 0 mls/hr UNSCH OTHER 03/04/17 12:00 Acetaminophen/ Hydrocodone Bitart 1 tab 1 tab Q4H PRN PO 03/04/17 10:45 03/08/17 06:17 (Lr 1000 ml Inj) 1,000 ml @ 30 mls/hr Q24H PRN IV 03/05/17 02:30 03/05/17 10:30 (Lovenox Inj) 40 mg Q24H SQ 03/06/17 12:00 03/12/17 17:27 (Dilaudid Pf Inj) 2 mg Q4H PRN IV PUSH 03/05/17 12:15 03/12/17 22:39 (Atarax) 25 mg Q6H PRN PO 03/06/17 10:45 03/11/17 12:40 (Senokot) 17.2 mg DAILY PO 03/06/17 11:00 03/07/17 09:42 ([place] 10-325 Mg) 1 tab Q4H PRN PO 03/08/17 08:30 03/13/17 09:52 (Micatin 2% Cream) 1 applic Q12HR TOPICAL 03/09/17 15:00 03/13/17 09:00 Miscellaneous Information SPECIFIC LAB TO BE DRAWN:VANCO TROUGH DATE... ONCE ONCE .XX 03/13/17 17:45 03/13/17 17:46 (Dilaudid Pf Inj) 2 mg Q4H PRN IV PUSH 03/11/17 12:00 (Benadryl 2% Cream) 1 applic TID PRN TOPICAL 03/11/17 14:15 03/11/17 21:51 Hydrocortisone 1 applic 1 applic Q8HR TOPICAL 03/11/17 15:00 03/13/17 05:47 (Vancomycin Inj/ NS 500 ml Inj) 525 ml @ 250 mls/hr Q18H IV 03/12/17 06:00 03/16/17 20:05 03/13/17 00:24 (NS Flush) See Protocol DAILY IV FLUSH 03/13/17 09:00 (NS Flush) See Protocol UNSCH PRN IV FLUSH 03/12/17 11:00 (Heparin Central Flush) See Protocol DAILY IV FLUSH 03/13/17 09:00 (Heparin Central Flush) See Protocol UNSCH PRN IV FLUSH 03/12/17 11:00 (NS Flush) UNSCH PRN IV FLUSH 03/12/17 11:00 A/P Problem List: (1) Abscess of right lower extremity ICD Code: L02.415 Status: Acute (2) Cellulitis ICD Code: L03.90 Status: Acute (3) Hollie rash of groin ICD Code: B37.89 Status: Acute (4) HTN (hypertension) ICD Code: I10 Status: Chronic (5) MRSA (methicillin resistant staph aureus) culture positive ICD Code: Z22.322 Status: Acute (6) Contact dermatitis ICD Code: L25.9 Status: Acute Assessment and Plan (1) Abscess of right lower extremity Plan: Failed outpatient treatment for [employer] with Bactrim. CT of the leg as described above. Wound culture grew MRSA Ultrasound of the right lower extremity showed a 431 cm complex fluid collection in the superficial soft tissues in the right calf. Surgery consulted. Patient status post I&D with wound VAC placement on . Blood cultures negative 5. Continue IV vancomycin for now. Staph aureus is sensitive to several oral antibiotics. Pharmacy helping with Vancomycin dose. ID consulted appreciate recommendations - Continue IV Vancomycin, may need IV Vancomycin as outpatient. Picc line placed today. Patient will be able to go home once able to tolerate dressing changes with oral medications and cleared by general surgery and ID. (2) Cellulitis Plan: As above. (3) Hollie rash of groin Plan: Continue antifungal cream - rash improving (4) HTN (hypertension) Plan: stable on lisinopril DVT prophylaxis: Lovenox SQ. Discharge Planning Patient still with significant pain on dressing change requiring IV medication. Dc home once patient able to tolerate dressing changes with po meds. Problem Qualifiers (1) Cellulitis: Qualified Code: L03.115 - Cellulitis of right lower extremity (2) HTN (hypertension): Qualified Code: I10 - Essential hypertension (3) Contact dermatitis: Qualified Code: L23.1 - Allergic contact dermatitis due to adhesives Lefty Blake MD March 13, 2017 11:42
[2017-03-13 12:00] VITALS: BP 127/72; PULSE 92; RESP 20; TEMP 97.2; O2SAT 97
[2017-03-13] MEDS: SODIUM CHLORIDE 0.9% FLUSH 10 ML FLUSH IV FLUSH SCH ×3 (13:20→21:24)
[2017-03-13] MEDS: diphenhydrAMINE HCL 2%/ZINC ACETATE 0.1% CREAM 30 APPLIC/30 GM TUBE TOPICAL PRN ×2 (13:21→21:27)
[2017-03-13 16:00] VITALS: BP 145/87; PULSE 91; RESP 20; TEMP 98.2; O2SAT 96
[2017-03-13] MEDS: ENOXAPARIN SODIUM 40 MG/0.4 ML SYRINGE SQ SCH (17:16)
[2017-03-13] MEDS ORDERED: PHARMACY ORDERED LAB ONE (17:45)
[2017-03-13] MEDS: HYDROmorphone HCL PF 2 MG/ML VIAL IV PUSH PRN (19:03)
--- NOTE | 2017-03-13 19:20 | HHI.PR ---
Subjective Subjective Notes Dressing not changed since last PM Objective Vitals/I&O Vital Signs Date Time Temp Pulse Resp B/P Pulse Ox O2 Delivery O2 Flow Rate FiO2 03/13/17 18:19 18 03/13/17 16:00 98.2 91 145/87 96 Labs Laboratory Tests Test 03/13/17 03/13/17 05:47 17:38 Creatinine 0.75 Estimat Glomerular Filtration 108 Rate Vancomycin Level Trough 8.9 Narrative Exam Lower leg minimally erythematous medial to incision Moderately tender to palpation still Lower extremity edema improved. Dressing with greenish discoloration Tissue viable. A/P Assessment and Plan 56 year old male s/p I&D RIGHT calf Wound Vac placement; now with wet to dry dressings Needs to have Kapil beck, as likely now colonized with Pseudomonas Needs BID dressing changes!! Spoke with charge nurse Cabrera Kumari MD March 13, 2017 19:20
[2017-03-13 20:00] VITALS: BP 146/78; PULSE 91; RESP 18; TEMP 96.9; O2SAT 95
[2017-03-13] MEDS: ZOLPIDEM TARTRATE 5 MG TAB PO PRN (21:23)
[2017-03-13] MEDS: PRAVASTATIN SOD 40 MG TAB PO SCH (21:23)
[2017-03-14] VITALS: BP 121/75; PULSE 82; RESP 20; TEMP 98.4; O2SAT 95
[2017-03-14] MEDS: ACETAMINOPHEN/HYDROcodone 325 MG/10 MG TAB PO PRN ×4 (03:34→21:24)
[2017-03-14] MEDS: HYDROCORTISONE 1% CREAM 30 GM TOPICAL SCH ×3 (06:26→21:24)
[2017-03-14] MEDS: VANCOMYCIN INJ 2,500 MG in SODIUM CHLORID 0.9% 500 ML INJ 500 ML IV SCH ×2 (06:27→16:35)
[2017-03-14] MEDS: HYDROmorphone HCL PF 2 MG/ML VIAL IV PUSH PRN (06:34)
[2017-03-14 08:08] VITALS: BP 123/75; PULSE 80; RESP 19; TEMP 97.5; O2SAT 100
[2017-03-14] MEDS: diphenhydrAMINE HCL 2%/ZINC ACETATE 0.1% CREAM 30 APPLIC/30 GM TUBE TOPICAL PRN (08:30)
[2017-03-14] MEDS: SODIUM CHLORIDE 0.9% FLUSH 10 ML FLUSH IV FLUSH SCH ×3 (08:31→21:00)
[2017-03-14] MEDS: LACTOBACILLUS ACIDOPHILUS TAB PO SCH ×3 (08:33→16:33)
[2017-03-14] MEDS: DOCUSATE SODIUM 100 MG CAP PO SCH ×2 (08:33→21:23)
[2017-03-14] MEDS: ASPIRIN EC 81 MG TABEC PO SCH (08:33)
[2017-03-14] MEDS: SENNOSIDES 8.6 MG TAB PO SCH (08:33)
[2017-03-14] MEDS: HYDROCHLOROTHIAZIDE 12.5 MG CAP PO SCH (08:33)
[2017-03-14] MEDS: LISINOPRIL 20 MG TAB PO SCH (08:33)
[2017-03-14] MEDS: SODIUM HYPOCHLORITE 0.25% 500 ML BTL TOPICAL SCH ×2 (08:34→21:25)
[2017-03-14] MEDS: MICONAZOLE NITRATE 2% CREAM 15 GM TOPICAL SCH ×3 (08:35→21:26)
[2017-03-14 12:15] VITALS: BP 142/82; PULSE 97; RESP 18; TEMP 95.4; O2SAT 100
--- NOTE | 2017-03-14 12:58 | HHI.IDPN ---
Note Infectious Disease Note ID COVERAGE: Notes reviewed. Asked to see patient for IV outpatient antibiotic set up. Patient seen yesterday by Dr. Bryan. No fevers Denies pain,nausea or vomiting. Antibiotics VANCOMYCIN Lines Left arm PICC line Past Medical History Arthritis, HTN Allergies: Coded Allergies: Penicillin (Verified Allergy, Mild, 03/02/17) *MDRO Multi-Drug Resistant Organism (Verified Adverse Reaction, Unknown, ) MRSA (leg) - 03/02/17 Objective Vital Signs Date Time Temp Pulse Resp B/P Pulse Ox O2 Delivery O2 Flow Rate FiO2 03/14/17 12:15 95.4 97 18 142/82 100 03/14/17 08:08 97.5 80 19 123/75 100 03/14/17 00:00 98.4 82 20 121/75 95 03/13/17 20:00 96.9 91 18 146/78 95 03/13/17 19:33 18 03/13/17 18:19 18 03/13/17 16:00 98.2 91 20 145/87 96 Laboratory Tests Test 03/13/17 05:47 Creatinine 0.75 MG/DL Estimat Glomerular Filtration 108 ML/MIN Rate GENERAL: Patient is in no acute distress. HEENT: EOMI, No icterus. NECK: Supple. LUNGS: Clear breath sounds. CARDIAC: Regular rate and rhythm ABDOMEN: Soft, non tender. EXTREMITIES: No CC. Mild swelling at the r. calf. SKIN: No rash. Assessment & Plan Diagnosis: (1) Abscess of right lower extremity Plan: S/p drainage Continue IV Vancomycin until 03/19/17. Per previous plan of . Order written for outpatient administration. Follow up as outpatient with Dr. Bryan. (2) MRSA (methicillin resistant staph aureus) culture positive Plan: Blood cultures negative Case management notified to arrange antibiotic. See orders. Discussed with Dr. Schaefer. Nain Swenson MD March 14, 2017 12:58
--- NOTE | 2017-03-14 13:03 | HHI.FF ---
Infusion Therapy Location of Infusion Therapy: Home Health Care IV Infusion Order Patient Information Patient Weight 156.5 kg Diagnosis: (1) MRSA (methicillin resistant staph aureus) culture positive (2) Abscess of right lower extremity Coded Allergies: Penicillin (Verified Allergy, Mild, 03/02/17) *MDRO Multi-Drug Resistant Organism (Verified Adverse Reaction, Unknown, ) MRSA (leg) - 03/02/17 Administer Medication Vancomycin 2500mg IV [id number] Stop Treatment: March 19, 2017 Additional Information Venous access: PICC Line Additional Instructions [x] Peripheral flush and dressing changes per protocol [x] 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 [] May leave port accessed during therapy. [] May leave peripheral site accessed for duration of therapy. [x] If patient has SOB or respiratory distress, check oxygen saturation. If less than 90% or clinical signs of respiratory distress, administer oxygen at 2 L/min. via nasal cannula and notify physician. [x] Anaphylaxis/Reaction orders: * Stop infusion. * Keep IV line open with saline flush. * Notify physician. * Monitor vital signs every 15 minutes until symptoms resolve. * Check Oxygen saturation; Oxygen at 2 L/min. via nasal cannula if less than 90% or clinical signs of respiratory distress. * Administer diphenhydramine (Benadryl) 25 mg IV STAT, (unless patient has received as pre-med). May repeat once, if necessary. * Solu-Cortef 250 mg IVP over 30-60 seconds, use 100 mg vials for each dissolution. * Epinephrine (1mg/1 ml) 0.3 mg subcutaneously or IVP now with any signs of respiratory distress. * Check with physician for new additional pre-med orders if patient is re- challenged or re-treated. [x] May remove PICC line when treatment complete, after confirming with Physician. [x] If the patient is admitted to the hospital, the ED, or transferred via [facility] , complete transfer form including medication reconciliation order sheet. Laboratory Tests Weekly Labs: BMP (Follow up with Dr. Bryan ) Additional Information Follow up with Dr.Reba Bryan in [address] Bryan will determine if PIC line should be removed. Vancomycin trough with am dose on Sunday03/16/17. Nain Swenson MD March 14, 2017 13:03
--- NOTE | 2017-03-14 13:07 | HHI.FF ---
Face to Face Verification Diagnosis: (1) Abscess of right lower extremity (2) MRSA (methicillin resistant staph aureus) culture positive (3) HTN (hypertension) (4) Contact dermatitis (5) Hollie rash of groin (6) Cellulitis Home Health Nursing Order: Wound care and dressing changes Nursing assessment with vital signs IV medication administration I have seen patient Christopher CastroJr on 03/14/17. My clinical findings support the need for the requested home health care services because: Limited ability to care for self Infection w/ risk of complications Injectable med education/admin I certify that my clinical findings support that this patient is homebound because: Unsafe to leave home unassisted Unable to use public transportation Lefty Blake MD March 14, 2017 13:07
[2017-03-14] MEDS: ENOXAPARIN SODIUM 40 MG/0.4 ML SYRINGE SQ SCH (13:45)
--- NOTE | 2017-03-14 14:43 | HHI.PR ---
Subjective Remarks Patient states pain is better controlled denies cp/sob rash in wrists is improving denies fevers and chills Objective Vitals Vital Signs Date Time Temp Pulse Resp B/P Pulse Ox O2 Delivery O2 Flow Rate FiO2 03/14/17 12:15 95.4 97 18 142/82 100 03/14/17 08:08 97.5 80 19 123/75 100 03/14/17 00:00 98.4 82 20 121/75 95 03/13/17 20:00 96.9 91 18 146/78 95 03/13/17 19:33 18 03/13/17 18:19 18 03/13/17 16:00 98.2 91 20 145/87 96 I/O 03/13/17 03/13/17 03/13/17 03/14/17 03/14/17 03/14/17 07:00 15:00 23:00 07:00 15:00 23:00 Intake Total 780 ml 1100 ml 595 ml 840 ml Output Total 1050 ml 425 ml Balance 780 ml 50 ml 595 ml 415 ml Intake Oral 240 ml 1100 ml 840 ml IV Total 540 ml 595 ml Output Urine Total 1050 ml 425 ml # Voids 2 2 # Bowel Movements 0 0 Result Diagram: 03/11/17 0700 03/13/17 0547 Imaging Last Impressions Chest X-Ray 03/12/17 0000 Signed Impressions: Service Date/Time: Sunday, March 12, 2017 10:35 - CONCLUSION: Left upper extremity PICC line in satisfactory position. No acute cardiopulmonary process. Oleg Huber MD Upper Extremity Ultrasound 03/11/17 0000 Signed Impressions: Service Date/Time: Saturday, March 11, 2017 16:56 - CONCLUSION: Superficial thrombus in the basilic vein. No deep thrombus. Constantino Harry MD Lower Extremity Ultrasound 03/04/17 0000 Signed Impressions: Service Date/Time: Saturday, March 04, 2017 11:54 - CONCLUSION: 4 x 3 x 1 cm complex fluid collection in the superficial soft tissues of the right calf suggesting abscess in the proper clinical setting. Sy Finch MD Lower Extremity CT 03/02/17 0000 Signed Impressions: Service Date/Time: Thursday, March 02, 2017 15:20 - CONCLUSION: 1. Marked superficial cellulitis without defined deep space abscess or osteomyelitis. 2. Cellulitis does involve the anterior surface of the tibia but there is no periosteal reaction to suggest an osteomyelitis at this point. 3. Extensive venous varicosity evident. Noe Burks MD FACR Objective Remarks GENERAL: Awake and alert, in no acute distress. SKIN: right lower extremity is tez wrapped. upper back rash cleared. Wrist papular rash improving. HEAD: Atraumatic. Normocephalic. EYES: Pupils equal and round. No scleral icterus. ENT: Mucous membranes pink and moist. NECK: Trachea midline. No JVD. CARDIOVASCULAR: Regular rate and rhythm. No murmur appreciated. RESPIRATORY: No accessory muscle use. Clear to auscultation. Breath sounds equal bilaterally. GASTROINTESTINAL: Abdomen soft, non-tender, nondistended. Hepatic and splenic margins not palpable. MUSCULOSKELETAL: No obvious deformities. No clubbing. No cyanosis. 2+ edema of the right lower extremity. Tez wrap in place on right lower extremity which seems wet with serous fluid. NEUROLOGICAL: Awake and alert. No obvious cranial nerve deficits. Motor grossly within normal limits. Normal speech. PSYCHIATRIC: Appropriate mood and affect; insight and judgment normal. Procedures I&D 03/05/17. sp I&D and wound Vac replacement on 03/09/17 Medications and IVs Current Medications Medications (Trade) Dose Ordered Sig/[place] Route Start Time Stop Time Status Last Admin (Ecotrin Ec) 81 mg DAILY PO 03/03/17 09:00 03/14/17 08:33 (Microzide) 12.5 mg DAILY PO 03/03/17 09:00 03/14/17 08:33 (Prinivil) 40 mg DAILY PO 03/03/17 09:00 03/14/17 08:33 (Pravachol) 80 mg HS PO 03/02/17 21:00 03/13/17 21:23 (NS Flush) 2 ml UNSCH PRN IV FLUSH 03/02/17 17:03/11/17 16:31 (NS Flush) 2 ml BID IV FLUSH 03/02/17 21:00 03/13/17 21:24 (Tylenol) 650 mg Q4H PRN PO 03/02/17 17:15 03/03/17 07:30 (Colace) 100 mg Q12H PO 03/02/17 21:00 03/09/17 20:12 (Ambien) 5 mg HS PRN PO 03/02/17 17:15 03/13/17 21:23 (Narcan Inj) 0.4 mg UNSCH PRN IV 03/02/17 17:15 (Vasotec Inj) 1.25 mg Q6H PRN IV PUSH 03/02/17 18:00 Lactobacillus Acidophilus 1 tab 1 tab TID PO 03/03/17 13:00 03/14/17 13:45 (Vancomycin Consult Pharmacy) 0 ml @ 0 mls/hr UNSCH OTHER 03/04/17 12:00 Acetaminophen/ Hydrocodone Bitart 1 tab 1 tab Q4H PRN PO 03/04/17 10:45 03/08/17 06:17 (Lr 1000 ml Inj) 1,000 ml @ 30 mls/hr Q24H PRN IV 03/05/17 02:30 03/05/17 10:30 (Lovenox Inj) 40 mg Q24H SQ 03/06/17 12:00 03/14/17 13:45 (Dilaudid Pf Inj) 2 mg Q4H PRN IV PUSH 03/05/17 12:15 03/14/17 06:34 (Atarax) 25 mg Q6H PRN PO 03/06/17 10:45 03/11/17 12:40 (Senokot) 17.2 mg DAILY PO 03/06/17 11:00 03/07/17 09:42 ([place] 10-325 Mg) 1 tab Q4H PRN PO 03/08/17 08:30 03/14/17 08:42 (Micatin 2% Cream) 1 applic Q12HR TOPICAL 03/09/17 15:00 03/14/17 08:52 (Dilaudid Pf Inj) 2 mg Q4H PRN IV PUSH 03/11/17 12:00 (Benadryl 2% Cream) 1 applic TID PRN TOPICAL 03/11/17 14:15 03/14/17 08:30 (Hydrocortisone 1% Cream) 1 applic Q8HR TOPICAL 03/11/17 15:00 03/14/17 13:45 (NS Flush) See Protocol DAILY IV FLUSH 03/13/17 09:00 03/13/17 17:14 (NS Flush) See Protocol UNSCH PRN IV FLUSH 03/12/17 11:00 (Heparin Central Flush) See Protocol DAILY IV FLUSH 03/13/17 09:00 03/14/17 08:31 (Heparin Central Flush) See Protocol UNSCH PRN IV FLUSH 03/12/17 11:00 03/13/17 21:23 (NS Flush) UNSCH PRN IV FLUSH 03/12/17 11:00 Sodium Hypochlorite 500 ml 500 ml BID TOPICAL 03/14/17 09:00 03/14/17 08:34 (Vancomycin Inj/ NS 500 ml Inj) 525 ml @ 250 mls/hr Q12H IV 03/14/17 06:00 03/16/17 05:59 03/14/17 06:27 Miscellaneous Information SPECIFIC LAB TO BE DRAWN:VANCOMY... ONCE ONCE .XX 03/15/17 05:45 03/15/17 05:46 A/P Problem List: (1) Abscess of right lower extremity ICD Code: L02.415 Status: Acute (2) Cellulitis ICD Code: L03.90 Status: Acute (3) Hollie rash of groin ICD Code: B37.89 Status: Acute (4) HTN (hypertension) ICD Code: I10 Status: Chronic (5) MRSA (methicillin resistant staph aureus) culture positive ICD Code: Z22.322 Status: Acute (6) Contact dermatitis ICD Code: L25.9 Status: Acute Assessment and Plan (1) Abscess of right lower extremity Plan: Failed outpatient treatment for [employer] with Bactrim. CT of the leg as described above. Wound culture grew MRSA Ultrasound of the right lower extremity showed a 431 cm complex fluid collection in the superficial soft tissues in the right calf. Surgery consulted. Patient status post I&D with wound VAC placement on . Blood cultures negative 5. Continue IV vancomycin for now. Staph aureus is sensitive to several oral antibiotics. Pharmacy helping with Vancomycin dose. ID consulted appreciate recommendations - Continue IV Vancomycin until 03/19, Picc line in place- Patient to follow up as outpatient with Dr Bryan. Patient will be able to go home once able to tolerate dressing changes with oral medications and cleared by general surgery. Patient need bid dressing changes. (2) Cellulitis Plan: As above. (3) Hollie rash of groin Plan: Continue antifungal cream - rash improving (4) HTN (hypertension) Plan: stable on lisinopril DVT prophylaxis: Lovenox SQ. Discharge Planning Dc home once home health arranged and patient cleared to be DC by general surgery. Problem Qualifiers (1) Cellulitis: Qualified Code: L03.115 - Cellulitis of right lower extremity (2) HTN (hypertension): Qualified Code: I10 - Essential hypertension (3) Contact dermatitis: Qualified Code: L23.1 - Allergic contact dermatitis due to adhesives Lefty Blake MD March 14, 2017 14:43
[2017-03-14] MEDS ORDERED: HYDR-3516 PO (15:22)
[2017-03-14] MEDS ORDERED: BEDSIDE COMMODE1 MI1 (15:37)
[2017-03-14] MEDS ORDERED: WHEEMIS3 (15:37)
[2017-03-14] MEDS ORDERED: WALKER WHEELS/F1 MIS (15:37)
[2017-03-14 16:41] VITALS: BP 149/94; PULSE 85; RESP 18; TEMP 98.1; O2SAT 100
--- NOTE | 2017-03-14 18:46 | HHI.PR ---
Subjective Subjective Notes Patient seen around 0630----Resting in bed; just received IV Dilaudid for dressing change Objective Vitals/I&O Vital Signs Date Time Temp Pulse Resp B/P Pulse Ox O2 Delivery O2 Flow Rate FiO2 03/14/17 16:41 98.1 85 18 149/94 100 Cardiovascular: Regular Lungs: Clear Abdomen: Non-distended, Non-tender Narrative Exam RIGHT leg----calf --- wet to dry dressing removed; wound bed clean ---beefy red without purulent fluid ---- erythema at wound edges; Dakin soaked gauze packing placed A/P Assessment and Plan 56 year old male s/p I&D RIGHT calf Wound Vac placement; now with wet to dry dressings -Continue antibiotics---ID following -Pain control -PICC placed -Encouraged mobilization and OOB -Regular diet -Dakin soaked gauze dressing ----change BID and PRN Attending Note - Dr. Kumari Wound clean with good granulation base Home when able to tolerate dressing changes without IV pain meds The exam, history, and the medical decision-making described in the above note were completed with the assistance of the mid-level provider. I reviewed and agree with the findings presented. I attest that I had a [id number] encounter with the patient on the same day, and personally performed and documented my assessment and findings in the medical record. Aline Adam March 14, 2017 18:46 Cabrera Kumari MD Apr 14, 2017 13:58
[2017-03-14 20:00] VITALS: BP 142/80; PULSE 98; RESP 21; TEMP 98.3; O2SAT 100
[2017-03-14] MEDS: ZOLPIDEM TARTRATE 5 MG TAB PO PRN (21:23)
[2017-03-14] MEDS: PRAVASTATIN SOD 40 MG TAB PO SCH (21:23)
[2017-03-14] MEDS ORDERED: CALCIUM CARBONATE 500 MG CHEWABLE TAB CHEW PRN (22:15)
[2017-03-15] VITALS: BP 142/99; PULSE 93; RESP 21; TEMP 97.3; O2SAT 97
[2017-03-15] MEDS: ACETAMINOPHEN/HYDROcodone 325 MG/10 MG TAB PO PRN ×3 (02:26→11:48)
[2017-03-15] MEDS ORDERED: VANCOMYCIN TROUGH ONE (05:45)
[2017-03-15] MEDS: HYDROCORTISONE 1% CREAM 30 GM TOPICAL SCH (06:00)
[2017-03-15] MEDS: VANCOMYCIN INJ 2,500 MG in SODIUM CHLORID 0.9% 500 ML INJ 500 ML IV SCH (06:30)
[2017-03-15 08:00] VITALS: BP 127/72; PULSE 75; RESP 20; TEMP 96.4; O2SAT 99
[2017-03-15] MEDS: LACTOBACILLUS ACIDOPHILUS TAB PO SCH ×2 (08:57→11:48)
[2017-03-15] MEDS: DOCUSATE SODIUM 100 MG CAP PO SCH (08:57)
[2017-03-15] MEDS: ASPIRIN EC 81 MG TABEC PO SCH (08:57)
[2017-03-15] MEDS: SODIUM CHLORIDE 0.9% FLUSH 10 ML FLUSH IV FLUSH SCH ×2 (08:57)
[2017-03-15] MEDS: SENNOSIDES 8.6 MG TAB PO SCH (08:58)
[2017-03-15] MEDS: LISINOPRIL 20 MG TAB PO SCH (08:58)
[2017-03-15] MEDS: HYDROCHLOROTHIAZIDE 12.5 MG CAP PO SCH (08:58)
[2017-03-15] MEDS: SODIUM HYPOCHLORITE 0.25% 500 ML BTL TOPICAL SCH (08:58)
[2017-03-15] MEDS: MICONAZOLE NITRATE 2% CREAM 15 GM TOPICAL SCH (08:59)
[2017-03-15] MEDS: diphenhydrAMINE HCL 2%/ZINC ACETATE 0.1% CREAM 30 APPLIC/30 GM TUBE TOPICAL PRN (08:59)
--- NOTE | 2017-03-15 09:53 | HHI.DS ---
Discharge Summary Admission Date Mar 03, 2017 at 12:08 Discharge Date: March 15, 2017 Admitting Diagnosis Cellulitis (1) Abscess of right lower extremity ICD Code: L02.415 (2) Cellulitis ICD Code: L03.90 (3) Hollie rash of groin ICD Code: B37.89 (4) HTN (hypertension) ICD Code: I10 (5) MRSA (methicillin resistant staph aureus) culture positive ICD Code: Z22.322 (6) Contact dermatitis ICD Code: L25.9 Procedures I&D 03/05/17. sp I&D and wound Vac replacement on 03/09/17 Brief History - From Admission HPI from the admitting team The patient is a 56-year-old male with a past medical history of CVA and sleep apnea who is presenting to the hospital with cellulitis. 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 He said he received the cream and a course of pills and the scabies resolved. He said he had the scabies sores in his inner arms, around the elbows. 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 He was very itchy from the fleas and started scratching his legs and he scratched his leg until it started bleeding. He says there was an area on his right leg that was like a small red dot. He applied zinc oxide to the area. It got bigger, more painful and his leg felt tight so he went to urgent care. He was given a course of Bactrim. He says today his leg got worse despite the Bactrim so he went back to urgent care and they referred him to the hospital for IV antibiotics. The patient also mentions that he has bumps under his left armpit that he was told might be secondary to MRSA. He says his pain is quite severe at this time. He reports a fever of 102.4 at home. CBC/BMP: 03/11/17 0700 03/15/17 0609 Imaging Last Impressions Chest X-Ray 03/12/17 0000 Signed Impressions: Service Date/Time: Sunday, March 12, 2017 10:35 - CONCLUSION: Left upper extremity PICC line in satisfactory position. No acute cardiopulmonary process. Oleg Huber MD Upper Extremity Ultrasound 03/11/17 0000 Signed Impressions: Service Date/Time: Saturday, March 11, 2017 16:56 - CONCLUSION: Superficial thrombus in the basilic vein. No deep thrombus. Constantino Harry MD Lower Extremity Ultrasound 03/04/17 0000 Signed Impressions: Service Date/Time: Saturday, March 04, 2017 11:54 - CONCLUSION: 4 x 3 x 1 cm complex fluid collection in the superficial soft tissues of the right calf suggesting abscess in the proper clinical setting. Sy Finch MD Lower Extremity CT 03/02/17 0000 Signed Impressions: Service Date/Time: Thursday, March 02, 2017 15:20 - CONCLUSION: 1. Marked superficial cellulitis without defined deep space abscess or osteomyelitis. 2. Cellulitis does involve the anterior surface of the tibia but there is no periosteal reaction to suggest an osteomyelitis at this point. 3. Extensive venous varicosity evident. Noe Burks MD FACR PE at Discharge GENERAL: Awake and alert, in no acute distress. SKIN: right calf is wrapped with a clean dressing. CARDIOVASCULAR: Regular rate and rhythm. No murmur appreciated. RESPIRATORY: No accessory muscle use. Clear to auscultation. Breath sounds equal bilaterally. GASTROINTESTINAL: Abdomen soft, non-tender, nondistended. MUSCULOSKELETAL: 2+ edema of the right lower extremity. NEUROLOGICAL: Awake and alert. Motor grossly within normal limits. Normal speech. PSYCHIATRIC: Appropriate mood and affect; insight and judgment normal. Pt update on day of discharge Patient reports he is feeling better. He is anxious to go home. Pain is controlled. I discussed the case with general surgery. Patient is cleared to go home with home health to continue outpatient treatment. Hospital Course 56-year-old male admitted with abscess of the right lower extremity. Patient previously failed outpatient therapy. Ultrasound of the right lower extremity showed a 431 cm complex fluid collection in the superficial soft tissues in the right calf. General surgery was consulted. Patient underwent I&D with wound VAC placement on 03/05/17. Infectious disease followed. The wound grew MRSA. Wound VAC was discontinued. The wound improved. The patient is discharged home with home health care to continue dressing and IV antibiotics. Other conditions treated include: Hollie rash of groin -Continue antifungal cream - rash improving HTN (hypertension) -stable on lisinopril DVT prophylaxis: Lovenox SQ. Discharge Planning Dc home once home health arranged and patient cleared to be DC by general surgery. Pt Condition on Discharge: Stable Discharge Disposition: Disch w/ Home Health Serv Discharge Time: > 30 minutes Discharge Instructions DIET: Follow Instructions for: Heart Healthy Diet Activities you can perform: See Additionl Instruction Other Activity Instructions: use front wheel walker to ambulate Follow up Referrals: Infectious Disease - 1 Week with [facility] - 2 Weeks with Cabrera Kumari MD New Medications: Bedside Commode (Bedside Commode) 1 Mis Mis 1 EA .ROUTE DIRECTED Infection #1 EA Walker with Front Wheels (Walker with Front Wheels) 1 Mis Mis 1 EA .ROUTE DIRECTED #1 Ref 0 EA Wheelchair (Wheelchair) 1 Mis Mis 1 EA .ROUTE DIRECTED #1 Ref 0 EA Wheelchair (Wheelchair) 1 Mis Mis 1 EA .ROUTE DIRECTED #1 Ref 0 EA Hydrocodone-Acetaminophen (Hydrocodone-Acetaminophen) 5-325 mg Tab 1 TAB PO Q4H PRN pain #30 TAB Continued Medications: Aspirin (Aspirin) 81 Mg Tabdr 81 MG PO DAILY TAB Hydrochlorothiazide (Hydrochlorothiazide) 12.5 Mg Tab 12.5 MG PO DAILY #30 Ref 0 TAB Lisinopril (Lisinopril) 40 Mg Tab 40 MG PO DAILY Blood Pressure Management #30 Ref 0 TAB Simvastatin (Simvastatin) 40 Mg Tab 40 MG PO HS Cholesterol Management #30 Ref 0 TAB Discontinued Medications: Sulfamethoxazole-Trimethoprim (Bactrim) 400-80 Mg Tab 1 TAB PO BID Infection Ref 0 TAB Jose De Jesus Rodrigues MD March 15, 2017 09:53
[2017-03-15] MEDS ORDERED: VANCOMYCIN INJ 2,200 MG in SODIUM CHLORID 0.9% 500 ML INJ 500 ML IV SCH (22:00)
[2017-03-17] MEDS ORDERED: PHARMACY ORDERED LAB ONE (09:45)
== END 2017-03-15 12:03 | disposition home health service (06) | DRG 580 ==
LOC: PHED 13:18 → PHEDA 16:10 → PH3B 17:03 → OBSVTOIN 03-03 12:08
PROVIDERS: ADMIT Family Medicine; ATTEND Family Medicine
PROC: 0H9HXZX Drainage of Right Upper Leg Skin, External Approach, Diagnostic (ICD-10-PCS; principal; 2017-03-05 11:07)
PROC: 0JDN3ZZ Extraction of Right Lower Leg Subcutaneous Tissue and Fascia, Percutaneous Approach (ICD-10-PCS; 2017-03-08)
DX: L02.415 Cutaneous abscess of right lower limb (principal); Z68.42 Body mass index [BMI] 45.0-49.9, adult; I10 Essential (primary) hypertension; I80.8 Phlebitis and thrombophlebitis of other sites; M21.371 Foot drop, right foot; B37.2 Candidiasis of skin and nail; B95.62 Methicillin resistant Staphylococcus aureus infection as the cause of diseases classified elsewhere; L03.115 Cellulitis of right lower limb; M19.90 Unspecified osteoarthritis, unspecified site; Z88.0 Allergy status to penicillin; Z86.73 Personal history of transient ischemic attack (TIA), and cerebral infarction without residual deficits; G47.33 Obstructive sleep apnea (adult) (pediatric); L73.9 Follicular disorder, unspecified; E66.01 Morbid (severe) obesity due to excess calories; W57.XXXA Bitten or stung by nonvenomous insect and other nonvenomous arthropods, initial encounter; Y93.89 Activity, other specified; Y92.009 Unspecified place in unspecified non-institutional (private) residence as the place of occurrence of the external cause; Y99.0 Civilian activity done for income or pay
CPT/HCPCS: 36569; 71010; 73701; 76882; 76937; 80048; 80053; 80202; 82565; 83735; 85025; 85027; 86403; 87040; 87070; 87147; 87186; 87205; 93005; 93971; 96365; 96366; 96375; G0378; G8987-GP; G8988-GP; J1170; J1200; J1642; J1650; J2250; J2270; J2930; J3010; J3370; J7030; J7040; J7050; J7120; Q9967